=== PATIENT | male | born 1980 | race American Indian/Alaskan Native ===

== ENCOUNTER 2016-09-06 17:14 | Emergency (ER) | payer MEDICARE ==
[2016-09-06 18:38] VITALS: BP 145/100
--- NOTE | 2016-09-06 19:01 | Emergency Department Report ---
Chief Complaint: Abdominal Pain Stated Complaint: ABD PAIN / BILAT HAND PAIN Time Seen by Provider: 09/06/16 18:58 - HPI History of Present Illness: 36 y/o male complain of abdominal pain x 1 month .pt denies any n/v at present .pt denies any prior medication at present . - ROS Review of Systems: per HPI - Exam Vital Signs: Vital Signs 09/06/16 18:33 Temperature 98.6 F Pulse Rate 66 Respiratory 16 Rate Blood Pressure 145/100 O2 Sat by Pulse 98 Oximetry Physical Exam: GENERAL: The patient is well-developed and well-nourished. Patient is in NAD. HENT: Normocephalic. Atraumatic. Patient has moist mucous membranes. Throat: No erythema, swelling or exudates. EYES: Extraocular motions are intact, PERRL NECK: Supple. No meningitic signs are noted. There is no adenopathy noted. CHEST/LUNGS: Clear to auscultation bilaterally. No wheezing, rales or rhonchi noted. There is no respiratory distress noted. HEART/CARDIOVASCULAR: Regular rate and rhythm. Normal S1 S2. No murmurs, rubs , clicks, or gallops. ABDOMEN: Abdomen is soft, nontender.. Bowel sounds normoactive. There is no abdominal distention. Negative rebound tenderness. Negative Rovsing. : Deferred. SKIN: There is no rash. There is no edema. There is no diaphoresis. NEURO: The patient is A&Ox3. The patient has no focal neurologic deficits. MUSCULOSKELETAL: There is no tenderness or deformity. There is no limitation range of motion. PSYCH: Pt has appropriate mood and affect. MSE screening note: Focused history and physical exam performed. Due to findings the following was ordered: ED Disposition for MSE Condition: Stable
[2016-09-06 19:24] LABS: Basophils % (Auto) 0.9 % (0.0-1.8); Hematocrit 41.2 % (35.5-45.6); Hemoglobin 13.2 gm/dl (11.8-15.2); Mean Corpuscular HGB Conc 32 % (32-34); Mean Corpuscular Volume 77 fl (84-94); Platelet Count 257 K/mm3 (140-440); Red Blood Count 5.37 M/mm3 (3.65-5.03); Red Cell Distribution Width 14.9 % (13.2-15.2); White Blood Count 5.5 K/mm3 (4.5-11.0)
[2016-09-06 19:30] LABS: Bilirubin,Urine NEG (Negative); Blood,Urine MOD (Negative); Ketones,Urine NEG (Negative); Leukocyte Esterase,Urine NEG (Negative); Mucus,Urine FEW /HPF; Nitrite,Urine NEG (Negative); Protein,Urine <15 mg/dL mg/dL (Negative); Urobilinogen,Urine < 2.0 mg/dL (<2.0)
[2016-09-06 19:31] LABS: Mean Corpuscular Hemoglobin 25 pg (28-32)
[2016-09-06 19:44] LABS: Amylase 39 units/L (27-131); Blood Urea Nitrogen 8 mg/dL (9-20); Calcium 9.1 mg/dL (8.4-10.2); Carbon Dioxide 28 mmol/L (22-30); Chloride 102.1 mmol/L (98-107); Glucose 85 mg/dL (75-100); Lipase 27 units/L (13-60); Potassium 4.2 mmol/L (3.6-5.0); Sodium 143 mmol/L (137-145)
[2016-09-06 19:55] LABS: Anion Gap 17 mmol/L
--- NOTE | 2016-09-08 04:55 | ED Elopement Review ---
ED Pt Elopement review - Results review Lab results: Laboratory Tests 09/06/16 09/06/16 09/06/16 19:05 19:05 19:12 WBC 5.5 RBC 5.37 H Hgb 13.2 Hct 41.2 MCV 77 L MCH 25 L MCHC 32 RDW 14.9 Plt Count 257 Lymph % (Auto) 41.0 H [place] % (Auto) 6.1 Eos % (Auto) 1.0 Baso % (Auto) 0.9 Lymph # 2.2 [place] # 0.3 Eos # 0.1 Baso # 0.1 Seg Neutrophils % 51.0 Seg Neutrophils # 2.8 Sodium 143 Potassium 4.2 Chloride 102.1 Carbon Dioxide 28 Anion Gap 17 BUN 8 L Creatinine 0.8 Estimated GFR > 60 BUN/Creatinine Ratio 10.00 Glucose 85 Calcium 9.1 Amylase 39 Lipase 27 Urine Color Yellow Urine Turbidity Clear Urine pH 5.0 Ur Specific [place] 1.019 Urine Protein <15 mg/dl Urine Glucose (UA) Neg Urine Ketones Neg Urine Blood Mod Urine Nitrite Neg Urine Bilirubin Neg Urine Urobilinogen < 2.0 Ur Leukocyte Esterase Neg Urine WBC (Auto) 1.0 Urine RBC (Auto) 42.0 U Epithel Cells (Auto) < 1.0 Urine Mucus Few - Call Back decision Pt Call Back Decision: No action required
== END 2016-09-07 04:37 | disposition left against medical advice (07) ==
LOC: ED 17:14
DX: R10.9 Unspecified abdominal pain (principal); Z53.21 Procedure and treatment not carried out due to patient leaving prior to being seen by health care provider
CPT/HCPCS: 36415; 80048; 81001; 82150; 83690; 85025

== ENCOUNTER 2016-10-14 01:05 | Emergency (ER) | payer MEDICARE ==
[2016-10-14 03:48] LABS: Bilirubin,Urine NEG (Negative); Blood,Urine NEG (Negative); Ketones,Urine NEG (Negative); Leukocyte Esterase,Urine NEG (Negative); Mucus,Urine 3+ /HPF; Nitrite,Urine NEG (Negative); Urobilinogen,Urine < 2.0 mg/dL (<2.0)
[2016-10-14 04:39] LABS: Hematocrit 44.1 % (35.5-45.6); Mean Corpuscular HGB Conc 32 % (32-34); Mean Corpuscular Volume 77 fl (84-94); Platelet Count 286 K/mm3 (140-440); Red Blood Count 5.74 M/mm3 (3.65-5.03); Red Cell Distribution Width 15.2 % (13.2-15.2); White Blood Count 6.8 K/mm3 (4.5-11.0)
[2016-10-14 04:47] LABS: Mean Corpuscular Hemoglobin 24 pg (28-32)
[2016-10-14 04:54] LABS: Anion Gap 15 mmol/L; BUN/Creatinine Ratio 15.55; Blood Urea Nitrogen 14 mg/dL (9-20); Carbon Dioxide 25 mmol/L (22-30); Glucose 110 mg/dL (75-100); Potassium 4.3 mmol/L (3.6-5.0); Sodium 134 mmol/L (137-145)
[2016-10-14 05:40] LABS: Basophils % (Manual) 0 % (0.0-1.8); Blastocytes % (Manual) 0 %; Eosinophils % (Manual) 0 % (0.0-4.3)
[2016-10-14 05:41] LABS: Diff Status Complete; Hypochromasia 1+
--- NOTE | 2016-10-14 08:04 | Emergency Department Report ---
HPI - General Chief Complaint: Nausea/Vomiting/Diarrhea Time Seen by Provider: 10/14/16 07:50 - HPI HPI: This is a 36-year-old Afro-Indian male who presents emergency Department with complaint of nausea, vomiting and diarrhea since last evening around 6 PM. Patient says he has had about 25-30 episodes of diarrhea and one episode of vomiting. However he says it feels as if he tries to drink anything or lays a certain way he is going to vomit. He has not taken anything for symptoms prior to presentation. He denies any recent travel or sick contacts at home. His primary care doctor is Dr. Turner. He denies any past medical history. He denies any abdominal pain, back pain, fever, dysuria. ED Past Medical Hx - Past Medical History Previous Medical History?: Yes Hx Hypertension: No Hx CVA: No Hx Heart Attack/AMI: No Hx Congestive Heart Failure: No Hx Diabetes: No Hx Deep Vein Thrombosis: No Hx Pulmonary Embolism: No Hx GERD: No Hx Liver Disease: No Hx Renal Disease: (Renal stones) Hx Sickle Cell Disease: No Hx Arthritis: Yes (HANDS) Hx Headaches / Migraines: No Hx Seizures: No Hx Kidney Stones: Yes Hx Psychiatric Treatment: No Hx Asthma: No Hx COPD: No Hx Tuberculosis: No Hx Dementia: No Hx HIV: No Additional medical history: Inguinal HERNIA-REPAIRED. BILATERAL CARPAL TUNNEL - Surgical History Past Surgical History?: Yes Hx Coronary Stent: No Hx Open Heart Surgery: No Hx Pacemaker: No Hx Internal Defibrillator: No Hx Cholecystectomy: No Hx Appendectomy: No Hx Breast Surgery: No Additional Surgical History: KIDNEY STONE SURGERY 2008. HERNIA REPAIR - Social History Smoking Status: Never Smoker Substance Use Type: None - Medications Home Medications: Home Medications Medication Instructions Recorded Confirmed Last Taken Type Meloxicam [Mobic] 7.5 mg PO QDAY #30 tablet 12/19/15 Unknown Rx Azithromycin [Zithromax TAB] 250 mg PO QDAY #6 tablet 01/05/16 Unknown Rx guaiFENesin/CODEINE [Robitussin AC] 5 - 10 ml PO Q6H PRN #120 ml 01/05/16 Unknown Rx predniSONE [Deltasone] 40 mg PO QDAY #10 tab 01/05/16 Unknown Rx Metaxalone [Skelaxin] 800 mg PO TID PRN #15 tablet 01/20/16 Unknown Rx Amoxicillin [Trimox CAP] 1,000 mg PO QDAY #20 capsule 05/04/16 Unknown Rx Docusate Sodium [Colace] 100 mg PO BID PRN #20 capsule 05/17/16 Unknown Rx Valacyclovir HCl [Valtrex] 1,000 mg PO BID #20 tab 06/24/16 Unknown Rx traMADol [Ultram 50 MG tab] 50 mg PO Q6HR PRN #20 tablet 07/30/16 Unknown Rx Ondansetron [Zofran Odt] 4 mg PO Q8HR PRN #10 tab.rapdis 10/14/16 Unknown Rx ED Review of Systems ROS: Stated complaint: CONSTIPATION/VOMITING Other details as noted in HPI Comment: All other systems reviewed and negative Constitutional: denies: chills, fever Eyes: denies: eye pain, eye discharge, vision change ENT: denies: ear pain, throat pain Respiratory: denies: cough, shortness of breath, wheezing Cardiovascular: denies: chest pain, palpitations Gastrointestinal: nausea, vomiting, diarrhea Musculoskeletal: denies: back pain, joint swelling, arthralgia Skin: denies: rash, lesions Neurological: denies: headache, weakness, paresthesias Physical Exam - Physical Exam Vital Signs: Vital Signs 10/14/16 01:32 Temperature 99.3 F Pulse Rate 110 H Respiratory 18 Rate Blood Pressure 141/74 O2 Sat by Pulse 97 Oximetry Physical Exam: GENERAL: The patient is well-developed well-nourished. HEENT: Normocephalic. Atraumatic. Extraocular motions are intact. Patient has moist mucous membranes. Pupils equal reactive to light bilaterally. NECK: Supple. Trachea is midline. CHEST/LUNGS: Clear to auscultation. There is no respiratory distress noted. HEART/CARDIOVASCULAR: Regular. There is no tachycardia. There is no gallop rub or murmur. ABDOMEN: Abdomen is soft, nontender. Patient has hyperactive bowel sounds. There is no abdominal distention. No guarding rebound tenderness. SKIN: There is no rash. There is no edema. There is no diaphoresis. NEURO: The patient is awake, alert, and oriented. The patient is cooperative. The patient has no focal neurologic deficits. The patient has normal speech. MUSCULOSKELETAL: There is no tenderness or deformity. There is no limitation range of motion. There is no evidence of acute injury. ED Course Vital Signs 10/14/16 01:32 Temperature 99.3 F Pulse Rate 110 H Respiratory 18 Rate Blood Pressure 141/74 O2 Sat by Pulse 97 Oximetry ED Medical Decision Making - Lab Data Result diagrams: 10/14/16 04:17 10/14/16 04:17 - Radiology Data Radiology results: image reviewed interpreted by me: Abdominal x-ray shows nonspecific nonobstructive bowel gas but no signs of bowel instruction. No acute process. - Medical Decision Making 36-year-old male presents to the emergency department with a history of significant diarrhea and some nausea and vomiting since last night. Patient is not having any bowel movements since being in the emergency department. He does have a hyperactive bowel sounds but otherwise his abdomen is soft and nontender. Patient's labs unremarkable including no signs of infection or electrolyte abnormalities. No renal insufficiency or glucose abnormalities. Abdominal x-ray was done that shows some nonspecific bowel gas. Otherwise no signs of obstruction. Patient was given a dose of Zofran here and has since passed a oral challenge. He will be discharged home to follow-up with a primary care doctor and will be given some Zofran. He will return to the ER with any worsening of his symptoms or any acute distress. - Differential Diagnosis gastroenteritis, ileus, viral syndrome, gastritis, colitis Critical Care Time: No Critical care attestation.: If time is entered above; I have spent that time in minutes in the direct care of this critically ill patient, excluding procedure time. ED Disposition Clinical Impression: Nausea & vomiting Qualifiers: Vomiting type: unspecified Vomiting Intractability: non-intractable Qualified Code(s): R11.2 - Nausea with vomiting, unspecified Diarrhea Qualifiers: Diarrhea type: unspecified type Qualified Code(s): R19.7 - Diarrhea, unspecified Disposition: DISCHARGED TO HOME OR SELFCARE Is pt being admited?: No Does the pt Need Aspirin: No Condition: Stable Instructions: Acute Nausea and Vomiting (ED), Acute Diarrhea (ED) Additional Instructions: Increase your oral rehydration. Please follow-up with a primary care doctor in the next few days. Return to the emergency department with any worsening of your symptoms or any acute distress. Prescriptions: Ondansetron [Zofran Odt] 4 mg PO Q8HR PRN #10 tab.rapdis PRN Reason: Nausea Referrals: NILE TURNER MD [Primary Care Provider] - 3-5 Days Time of Disposition: 10:24
[2016-10-14] MEDS: ZOFRAN ODT PO ONE (08:39)
--- NOTE | 2016-10-14 09:06 | XRay Report ---
ABDOMINAL SERIES: History: Vomiting, diarrhea. Findings: Multiple small air-fluid levels are identified throughout the abdomen. No dilated bowel or free air is identified. No pathologic calcifications. Normal stool in the colon. Heart and mediastinal structures are normal. The lung logan are clear. Impression: Findings consistent with gastroenteritis or a mild diffuse ileus. No acute abdominal findings.
[2016-10-14 09:27] VITALS: BP 133/86
== END 2016-10-14 10:39 | disposition home or self-care (01) ==
LOC: ED 01:05
DX: R11.2 Nausea with vomiting, unspecified (principal); R19.7 Diarrhea, unspecified; M19.90 Unspecified osteoarthritis, unspecified site
CPT/HCPCS: 36415; 74020; 80048; 81001; 82962; 85007; 85025; Q0162

== ENCOUNTER 2017-01-18 08:38 | Emergency (ER) | payer MEDICARE ==
[2017-01-18 08:43] VITALS: BP 122/79
[2017-01-18] MEDS ORDERED: MOTRIN PO ONE (09:56)
--- NOTE | 2017-01-18 10:48 | Emergency Department Report ---
Entered by FREDDY PINO, acting as scribe for LOU NORTON PA. HPI - General Chief Complaint: Sore Throat Time Seen by Provider: 01/18/17 09:30 - HPI HPI: 36 y/o male with a PMHx of arthritis and kidney stones presents to the ED c/o a sore throat that began last night. Rates pain a 6/10 in severity and describes pain as sore in quality. Associated symptoms include nasal congestion and rhinorrhea, but he denies headache, fever, chills, drooling, wheezing, and cough. Took OTC sore throat medication and did salt water goggles with no relief. NKDA. ED Past Medical Hx - Past Medical History Previous Medical History?: Yes Hx Hypertension: No Hx CVA: No Hx Heart Attack/AMI: No Hx Congestive Heart Failure: No Hx Diabetes: No Hx Deep Vein Thrombosis: No Hx Pulmonary Embolism: No Hx GERD: No Hx Liver Disease: No Hx Renal Disease: (Renal stones) Hx Sickle Cell Disease: No Hx Arthritis: Yes (HANDS) Hx Headaches / Migraines: No Hx Seizures: No Hx Kidney Stones: Yes Hx Psychiatric Treatment: No Hx Asthma: No Hx COPD: No Hx Tuberculosis: No Hx Dementia: No Hx HIV: No Additional medical history: Inguinal HERNIA-REPAIRED. BILATERAL CARPAL TUNNEL - Surgical History Past Surgical History?: Yes Hx Coronary Stent: No Hx Open Heart Surgery: No Hx Pacemaker: No Hx Internal Defibrillator: No Hx Cholecystectomy: No Hx Appendectomy: No Hx Breast Surgery: No Additional Surgical History: KIDNEY STONE SURGERY 2008. HERNIA REPAIR - Family History Family history: hypertension - Social History Smoking Status: Former Smoker Substance Use Type: Other - Medications Home Medications: Home Medications Medication Instructions Recorded Confirmed Last Taken Type Meloxicam [Mobic] 7.5 mg PO QDAY #30 tablet 12/19/15 Unknown Rx Azithromycin [Zithromax TAB] 250 mg PO QDAY #6 tablet 01/05/16 Unknown Rx guaiFENesin/CODEINE [Robitussin AC] 5 - 10 ml PO Q6H PRN #120 ml 01/05/16 Unknown Rx predniSONE [Deltasone] 40 mg PO QDAY #10 tab 01/05/16 Unknown Rx Metaxalone [Skelaxin] 800 mg PO TID PRN #15 tablet 01/20/16 Unknown Rx Amoxicillin [Trimox CAP] 1,000 mg PO QDAY #20 capsule 05/04/16 Unknown Rx Docusate Sodium [Colace] 100 mg PO BID PRN #20 capsule 05/17/16 Unknown Rx Valacyclovir HCl [Valtrex] 1,000 mg PO BID #20 tab 06/24/16 Unknown Rx traMADol [Ultram 50 MG tab] 50 mg PO Q6HR PRN #20 tablet 07/30/16 Unknown Rx Ondansetron [Zofran Odt] 4 mg PO Q8HR PRN #10 tab.rapdis 10/14/16 Unknown Rx Cetirizine HCl [ZyrTEC] 10 mg PO QDAY #14 capsule 01/18/17 Unknown Rx Fluticasone [Flonase] 1 spray NS QDAY #1 bottle 01/18/17 Unknown Rx ED Review of Systems ROS: Stated complaint: SORE THROAT Other details as noted in HPI Comment: All other systems reviewed and negative Constitutional: no symptoms reported. denies: chills, fever Eyes: denies: eye discharge ENT: throat pain, congestion, other (rhinorrhea, but denies drooling). denies: ear pain, dental pain Respiratory: no symptoms reported. denies: cough, shortness of breath, wheezing Cardiovascular: denies: chest pain, palpitations, edema, syncope Endocrine: no symptoms reported Gastrointestinal: denies: abdominal pain, nausea, vomiting Musculoskeletal: denies: back pain, arthralgia Skin: denies: rash Neurological: denies: headache Physical Exam - Physical Exam Vital Signs: Vital Signs 01/18/17 08:39 Temperature 98.7 F Pulse Rate 80 Respiratory 20 Rate Blood Pressure 122/79 O2 Sat by Pulse 97 Oximetry General: This is a 36-year-old male well-nourished well-developed in no acute distress. Physical Exam: Head: Normocephalic atraumatic Mouth: Moist, no pharyngeal exudate or erythema. Uvula is midline and oral airway is patent. No gingival enlargement or dental tenderness. No facial swelling. No peritonsillar abscesses. Neck: Supple, no C-spine tenderness, no tracheal deviation. Nontender to palpate. no adenopathy Ears: Bilateral TMs congested without erythema .bilateral EAC without any redness swelling or drainage Eyes: Bilateral pupils equal and reactive to light, bilateral EOM intact. Bilateral sclera and conjunctiva without injection. Normal accommodation Nose: Mucosa moist, positive congestion no erythema. Positive clear drainage. maxillary and frontal sinus non-tender to palpate. Lungs: Clear to auscultate bilaterally no rhonchi wheezes or rales. Normal work of breathing extremity; No CCE. +2 pulses. No neurovascular compromise Cardiovascular: S1-S2, regular rate rhythm. No murmurs. Skin: clean Dry and intact no rash no lesions Psych: Normal mood and behavior ED Course Vital Signs 01/18/17 08:39 Temperature 98.7 F Pulse Rate 80 Respiratory 20 Rate Blood Pressure 122/79 O2 Sat by Pulse 97 Oximetry - Reevaluation(s) Reevaluation #1: 01/18/17 10:43 Patient given Motrin 800 mg in emergency room for sore throat. ED Medical Decision Making - Lab Data Strep test is negative and cultures are pending. - Medical Decision Making ED course: With acute pharyngitis, upper respiratory tract infection. Strep test negative. Culture pending. Discussed with patient that he has upper respiratory tract infection which is more than likely viral in nature and he will be treated with Flonase, Zyrtec. Patient given Motrin 800 mg in emergency room for sore throat and discharged home with prescription for Flonase and Zyrtec. Critical care attestation.: If time is entered above; I have spent that time in minutes in the direct care of this critically ill patient, excluding procedure time. ED Disposition Clinical Impression: Upper respiratory infection, acute Acute pharyngitis Qualifiers: Pharyngitis/tonsillitis etiology: unspecified etiology Qualified Code(s): J02.9 - Acute pharyngitis, unspecified Disposition: DISCHARGED TO HOME OR SELFCARE Is pt being admited?: No Does the pt Need Aspirin: No Condition: Stable Instructions: Upper Respiratory Infection (ED), Cold Symptoms (ED), Pharyngitis (ED) Additional Instructions: Please increase her fluid intake Warm salt water 3-4 times a day. Take Medication as prescribed You can also flushing suicidal with saline nasal wash. Prescriptions: Cetirizine HCl [ZyrTEC] 10 mg PO QDAY #14 capsule Fluticasone [Flonase] 1 spray NS QDAY #1 bottle Referrals: PRIMARY CARE, [Primary Care Provider] - 3-5 Days [facility] [Outside] - 3-5 Days Forms: Work/School Release Form(ED) This documentation as recorded by the ODETTE ko JASMINE,accurately reflects the service I personally performed and the decisions made by me,LOU NORTON PA.
== END 2017-01-18 10:51 | disposition home or self-care (01) ==
LOC: ED 08:38
DX: J06.9 Acute upper respiratory infection, unspecified (principal); J02.9 Acute pharyngitis, unspecified; M19.90 Unspecified osteoarthritis, unspecified site; Z87.891 Personal history of nicotine dependence
CPT/HCPCS: 87116; 87430; 99282

== ENCOUNTER 2017-02-01 20:23 | Emergency (ER) | payer MEDICARE ==
[2017-02-01 20:43] VITALS: BP 158/82
--- NOTE | 2017-02-01 22:40 | Emergency Department Report ---
ED General Adult HPI - General Chief complaint: Abdominal Pain Stated complaint: CONSTIPATION Time Seen by Provider: 02/01/17 22:13 Source: patient Mode of arrival: Ambulatory Limitations: No Limitations - History of Present Illness Initial comments: This is a 36-year-old male that presents with constipation for 3 days. Patient stated has a chronic constipation issue and takes Colace with no relief. Patient denies any abdominal pain, nausea vomiting, abdominal distention, fever , chills, headache, shortness of breath, or chest pain. Patient stated he presents today with this issue because Colace has no relief. Patient denies any allergies. MD Complaint: constipation -: Gradual, days(s) (3) Severity scale (0 -10): 1 Improves with: medication (Colace but now has no relief.) Worsens with: none Associated Symptoms: denies other symptoms. denies: confusion, chest pain, cough, diaphoresis, fever/chills, headaches, loss of appetite, malaise, nausea/ vomiting, rash, seizure, shortness of breath, syncope, weakness - Related Data Previous Rx's Medication Instructions Recorded Last Taken Type Meloxicam [Mobic] 7.5 mg PO QDAY #30 tablet 12/19/15 Unknown Rx Azithromycin [Zithromax TAB] 250 mg PO QDAY #6 tablet 01/05/16 Unknown Rx guaiFENesin/CODEINE [Robitussin AC] 5 - 10 ml PO Q6H PRN #120 ml 01/05/16 Unknown Rx predniSONE [Deltasone] 40 mg PO QDAY #10 tab 01/05/16 Unknown Rx Metaxalone [Skelaxin] 800 mg PO TID PRN #15 tablet 01/20/16 Unknown Rx Amoxicillin [Trimox CAP] 1,000 mg PO QDAY #20 capsule 05/04/16 Unknown Rx Docusate Sodium [Colace] 100 mg PO BID PRN #20 capsule 05/17/16 Unknown Rx Valacyclovir HCl [Valtrex] 1,000 mg PO BID #20 tab 06/24/16 Unknown Rx traMADol [Ultram 50 MG tab] 50 mg PO Q6HR PRN #20 tablet 07/30/16 Unknown Rx Ondansetron [Zofran Odt] 4 mg PO Q8HR PRN #10 tab.rapdis 10/14/16 Unknown Rx Cetirizine HCl [ZyrTEC] 10 mg PO QDAY #14 capsule 01/18/17 Unknown Rx Fluticasone [Flonase] 1 spray NS QDAY #1 bottle 01/18/17 Unknown Rx Bisacodyl [Dulcolax suppos] 10 mg [place] QDAY 5 Days 02/01/17 Unknown Rx Allergies Allergy/AdvReac Type Severity Reaction Status Date / Time No Known Allergies Allergy Verified 09/06/16 18:33 ED Review of Systems ROS: Stated complaint: CONSTIPATION Other details as noted in HPI Constitutional: denies: chills, fever Eyes: denies: eye pain, eye discharge, vision change ENT: denies: ear pain, throat pain Respiratory: denies: cough, shortness of breath, wheezing Cardiovascular: denies: chest pain, palpitations Endocrine: no symptoms reported Gastrointestinal: denies: abdominal pain, nausea, diarrhea Genitourinary: denies: urgency, dysuria Musculoskeletal: denies: back pain, joint swelling, arthralgia Skin: denies: rash, lesions Neurological: denies: headache, weakness, paresthesias Psychiatric: denies: anxiety, depression Hematological/Lymphatic: denies: easy bleeding, easy bruising ED Past Medical Hx - Past Medical History Previous Medical History?: Yes Hx Hypertension: No Hx CVA: No Hx Heart Attack/AMI: No Hx Congestive Heart Failure: No Hx Diabetes: No Hx Deep Vein Thrombosis: No Hx Pulmonary Embolism: No Hx GERD: No Hx Liver Disease: No Hx Renal Disease: (Renal stones) Hx of Cancer: No Hx Sickle Cell Disease: No Hx Arthritis: Yes (HANDS) Hx Headaches / Migraines: No Hx Seizures: No Hx Kidney Stones: Yes Hx Psychiatric Treatment: No Hx Asthma: No Hx COPD: No Hx Tuberculosis: No Hx Dementia: No Hx HIV: No Additional medical history: Inguinal HERNIA-REPAIRED. BILATERAL CARPAL TUNNEL - Surgical History Past Surgical History?: Yes Hx Coronary Stent: No Hx Open Heart Surgery: No Hx Pacemaker: No Hx Internal Defibrillator: No Hx Cholecystectomy: No Hx Appendectomy: No Hx Breast Surgery: No Additional Surgical History: KIDNEY STONE SURGERY 2008. HERNIA REPAIR - Social History Smoking Status: Never Smoker Substance Use Type: None - Medications Home Medications: Home Medications Medication Instructions Recorded Confirmed Last Taken Type Meloxicam [Mobic] 7.5 mg PO QDAY #30 tablet 12/19/15 Unknown Rx Azithromycin [Zithromax TAB] 250 mg PO QDAY #6 tablet 01/05/16 Unknown Rx guaiFENesin/CODEINE [Robitussin AC] 5 - 10 ml PO Q6H PRN #120 ml 01/05/16 Unknown Rx predniSONE [Deltasone] 40 mg PO QDAY #10 tab 01/05/16 Unknown Rx Metaxalone [Skelaxin] 800 mg PO TID PRN #15 tablet 01/20/16 Unknown Rx Amoxicillin [Trimox CAP] 1,000 mg PO QDAY #20 capsule 05/04/16 Unknown Rx Docusate Sodium [Colace] 100 mg PO BID PRN #20 capsule 05/17/16 Unknown Rx Valacyclovir HCl [Valtrex] 1,000 mg PO BID #20 tab 06/24/16 Unknown Rx traMADol [Ultram 50 MG tab] 50 mg PO Q6HR PRN #20 tablet 07/30/16 Unknown Rx Ondansetron [Zofran Odt] 4 mg PO Q8HR PRN #10 tab.rapdis 10/14/16 Unknown Rx Cetirizine HCl [ZyrTEC] 10 mg PO QDAY #14 capsule 01/18/17 Unknown Rx Fluticasone [Flonase] 1 spray NS QDAY #1 bottle 01/18/17 Unknown Rx Bisacodyl [Dulcolax suppos] 10 mg [place] QDAY 5 Days 02/01/17 Unknown Rx ED Physical Exam - General Limitations: No Limitations General appearance: alert, in no apparent distress - Head Head exam: Present: atraumatic, normocephalic - Eye Eye exam: Present: normal appearance, PERRL, EOMI Pupils: Present: normal accommodation - ENT ENT exam: Present: normal exam, normal orophraynx, mucous membranes moist, TM's normal bilaterally, normal external ear exam - Neck Neck exam: Present: normal inspection, full ROM. Absent: tenderness, meningismus, lymphadenopathy, thyromegaly - Respiratory Respiratory exam: Present: normal lung sounds bilaterally. Absent: respiratory distress, wheezes, rales, rhonchi, stridor, chest wall tenderness, accessory muscle use, decreased breath sounds, prolonged expiratory - Cardiovascular Cardiovascular Exam: Present: regular rate, normal rhythm, normal heart sounds. Absent: bradycardia, tachycardia, irregular rhythm, systolic murmur, diastolic murmur, rubs, gallop - GI/Abdominal GI/Abdominal exam: Present: soft, normal bowel sounds. Absent: distended, tenderness, guarding, rebound, rigid, diminished bowel sounds, hyperactive bowel sounds, hypoactive bowel sounds, organomegaly, mass, bruit, pulsatile mass , hernia - Expanded GI/Abdominal Exam Expanded GI/Abdominal exam: Absent: psoas sign, obturator sign, heel tap sign, Farnsworth's sign, Rovsing's sign, tenderness at Mcburney's Point, ascites - Rectal Rectal exam: Present: deferred - Extremities Exam Extremities exam: Present: normal inspection, full ROM, normal capillary refill. Absent: tenderness, pedal edema, joint swelling, calf tenderness - Back Exam Back exam: Present: normal inspection, full ROM. Absent: tenderness, CVA tenderness (R), CVA tenderness (L), muscle spasm, paraspinal tenderness, vertebral tenderness, rash noted - Neurological Exam Neurological exam: Present: alert, oriented X3, CN II-XII intact, normal gait - Psychiatric Psychiatric exam: Present: normal affect, normal mood - Skin Skin exam: Present: warm, dry, intact, normal color. Absent: rash ED Course Vital Signs 02/01/17 20:37 Temperature 98.6 F Pulse Rate 83 Respiratory 18 Rate Blood Pressure 158/82 Blood Pressure 158/82 [Right] O2 Sat by Pulse 100 Oximetry ED Medical Decision Making - Medical Decision Making ED course: This is a 36-year-old male that presents with constipation. 1-after physical exam, patient received an x-ray to the abdomen to rule out bowel obstruction. Dictated by Dr. Rivera. Impression; nonobstructive bowel gas pattern. Small amount of stool in the colon. No gross free air. 2- Dr. Childs that has been notified about the patient and x-ray results. Agreed to plan of care and d/c plan of care. 3- Patient was prescribed Dulcolax at the time of d/c. 4- patient was instructed to follow-up with her primary care doctor in 3-5 days or if symptoms worsen such as abdominal pain, nausea vomiting, unable to bowel movement, chest pain or shortness of breath or productive emergency room 5- at time time of discharge, the patient does not seem toxic or ill in appearance. No acute signs of distress noted. Patient agrees to discharge treatment plan of care. No further questions noted by the patient. Critical care attestation.: If time is entered above; I have spent that time in minutes in the direct care of this critically ill patient, excluding procedure time. ED Disposition Clinical Impression: Constipation Qualifiers: Constipation type: unspecified constipation type Qualified Code(s): K59.00 - Constipation, unspecified Disposition: DISCHARGED TO HOME OR SELFCARE Is pt being admited?: No Does the pt Need Aspirin: No Condition: Stable Instructions: Bisacodyl (By mouth), Constipation (ED) Additional Instructions: follow-up with your primary care doctor in 3-5 days or if symptoms worsen such as abdominal pain, nausea vomiting, unable to bowel movement, chest pain or shortness of breath or productive emergency room Take Dulcolax as prescribed. Prescriptions: Bisacodyl [Dulcolax suppos] 10 mg NH QDAY 5 Days Referrals: NILE TURNER MD [Primary Care Provider] - 3-5 Days [facility] [Outside] - 3-5 Days [facility] [Outside] - 3-5 Days BRODIE PERRIN MD [Staff Physician] - 3-5 Days Forms: Work/School Release Form(ED)
--- NOTE | 2017-02-01 22:55 | XRay Report ---
FINAL REPORT EXAM: XR ABDOMEN 2V HISTORY: constipation COMPARISON: None available. FINDINGS: Supine and upright AP views of the abdomen obtained. No gross free air. Gas scattered within non dilated bowl loops. No gross pathologic calcifications. Bony structures are grossly intact. Small amount of stool in the colon. IMPRESSION: Nonobstructive bowel gas pattern. Small amount of stool in the colon.
== END 2017-02-01 23:12 | disposition home or self-care (01) ==
LOC: ED 20:23
DX: K59.00 Constipation, unspecified (principal); M19.90 Unspecified osteoarthritis, unspecified site
CPT/HCPCS: 74020; 99283

== ENCOUNTER 2017-06-21 19:59 | Emergency (ER) | payer MEDICARE ==
[2017-06-21 20:59] LABS: Basophils % (Auto) 0.9 % (0.0-1.8); Eosinophils % (Auto) 1.3 % (0.0-4.3); Mean Corpuscular HGB Conc 33 % (32-34); Mean Corpuscular Volume 77 fl (84-94); Platelet Count 289 K/mm3 (140-440); Red Blood Count 5.16 M/mm3 (3.65-5.03); Red Cell Distribution Width 14.7 % (13.2-15.2)
[2017-06-21 21:00] LABS: Mean Corpuscular Hemoglobin 25 pg (28-32)
[2017-06-21 21:20] LABS: Anion Gap 17 mmol/L; BUN/Creatinine Ratio 13; Blood Urea Nitrogen 8 mg/dL (9-20); Calcium 9.3 mg/dL (8.4-10.2); Carbon Dioxide 25 mmol/L (22-30); Chloride 102.1 mmol/L (98-107); Glucose 116 mg/dL (75-100); Potassium 4.3 mmol/L (3.6-5.0); Sodium 140 mmol/L (137-145)
--- NOTE | 2017-06-22 04:27 | Emergency Department Report ---
ED General Adult HPI - General Chief complaint: Chest Pain Stated complaint: CP Time Seen by Provider: 06/22/17 03:05 Source: patient Mode of arrival: Ambulatory Limitations: No Limitations - History of Present Illness Initial comments: She is a 37-year-old male no significant past medical history who presents with chest pain that has been going on for last 5 days. Patient states that the chest pain occurred while he was working and he believed he pulled a muscle. Chest pain is a 6 out of 10 being in certain positions makes it worse nothing makes it better. Patient denies having any nausea or vomiting. The chest pain is located in the middle of his chest as a sore type of feeling an ache gets worse when he touches it. He denies having any shortness of breath. Severity scale (0 -10): 5 - Related Data Previous Rx's Medication Instructions Recorded Last Taken Type Meloxicam [Mobic] 7.5 mg PO QDAY #30 tablet 12/19/15 Unknown Rx Azithromycin [Zithromax TAB] 250 mg PO QDAY #6 tablet 01/05/16 Unknown Rx guaiFENesin/CODEINE [Robitussin AC] 5 - 10 ml PO Q6H PRN #120 ml 01/05/16 Unknown Rx predniSONE [Deltasone] 40 mg PO QDAY #10 tab 01/05/16 Unknown Rx Metaxalone [Skelaxin] 800 mg PO TID PRN #15 tablet 01/20/16 Unknown Rx Amoxicillin [Trimox CAP] 1,000 mg PO QDAY #20 capsule 05/04/16 Unknown Rx Docusate Sodium [Colace] 100 mg PO BID PRN #20 capsule 05/17/16 Unknown Rx Valacyclovir HCl [Valtrex] 1,000 mg PO BID #20 tab 06/24/16 Unknown Rx traMADol [Ultram 50 MG tab] 50 mg PO Q6HR PRN #20 tablet 07/30/16 Unknown Rx Ondansetron [Zofran Odt] 4 mg PO Q8HR PRN #10 tab.rapdis 10/14/16 Unknown Rx Cetirizine HCl [ZyrTEC] 10 mg PO QDAY #14 capsule 01/18/17 Unknown Rx Fluticasone [Flonase] 1 spray NS QDAY #1 bottle 01/18/17 Unknown Rx Bisacodyl [Dulcolax suppos] 10 mg [place] QDAY 5 Days 02/01/17 Unknown Rx Acetaminophen 1,000 mg PO Q6HR #20 tablet 06/22/17 Unknown Rx Naproxen 250 mg PO BID #20 tablet 06/22/17 Unknown Rx Allergies Allergy/AdvReac Type Severity Reaction Status Date / Time No Known Allergies Allergy Verified 09/06/16 18:33 ED Review of Systems ROS: Stated complaint: CP Other details as noted in HPI Constitutional: denies: chills, fever Eyes: denies: eye pain, eye discharge, vision change ENT: denies: ear pain, throat pain Respiratory: denies: cough, shortness of breath, wheezing Cardiovascular: chest pain. denies: palpitations Endocrine: no symptoms reported Gastrointestinal: denies: abdominal pain, nausea, diarrhea Genitourinary: denies: urgency, dysuria Musculoskeletal: denies: back pain, joint swelling, arthralgia Skin: denies: rash, lesions Neurological: denies: headache, weakness, paresthesias Psychiatric: denies: anxiety, depression Hematological/Lymphatic: denies: easy bleeding, easy bruising ED Past Medical Hx - Past Medical History Hx Hypertension: No Hx CVA: No Hx Heart Attack/AMI: No Hx Congestive Heart Failure: No Hx Diabetes: No Hx Deep Vein Thrombosis: No Hx Pulmonary Embolism: No Hx GERD: No Hx Liver Disease: No Hx Renal Disease: (Renal stones) Hx Sickle Cell Disease: No Hx Arthritis: Yes (HANDS) Hx Headaches / Migraines: No Hx Seizures: No Hx Kidney Stones: Yes Hx Psychiatric Treatment: No Hx Asthma: No Hx COPD: No Hx Tuberculosis: No Hx Dementia: No Hx HIV: No Additional medical history: Inguinal HERNIA-REPAIRED, Obesity,. BILATERAL CARPAL TUNNEL - Surgical History Past Surgical History?: Yes Hx Coronary Stent: No Hx Open Heart Surgery: No Hx Pacemaker: No Hx Internal Defibrillator: No Hx Cholecystectomy: No Hx Appendectomy: No Hx Breast Surgery: No Additional Surgical History: KIDNEY STONE SURGERY 2009. HERNIA REPAIR - Social History Smoking Status: Never Smoker Substance Use Type: None - Medications Home Medications: Home Medications Medication Instructions Recorded Confirmed Last Taken Type Meloxicam [Mobic] 7.5 mg PO QDAY #30 tablet 12/19/15 Unknown Rx Azithromycin [Zithromax TAB] 250 mg PO QDAY #6 tablet 01/05/16 Unknown Rx guaiFENesin/CODEINE [Robitussin AC] 5 - 10 ml PO Q6H PRN #120 ml 01/05/16 Unknown Rx predniSONE [Deltasone] 40 mg PO QDAY #10 tab 01/05/16 Unknown Rx Metaxalone [Skelaxin] 800 mg PO TID PRN #15 tablet 01/20/16 Unknown Rx Amoxicillin [Trimox CAP] 1,000 mg PO QDAY #20 capsule 05/04/16 Unknown Rx Docusate Sodium [Colace] 100 mg PO BID PRN #20 capsule 05/17/16 Unknown Rx Valacyclovir HCl [Valtrex] 1,000 mg PO BID #20 tab 06/24/16 Unknown Rx traMADol [Ultram 50 MG tab] 50 mg PO Q6HR PRN #20 tablet 07/30/16 Unknown Rx Ondansetron [Zofran Odt] 4 mg PO Q8HR PRN #10 tab.rapdis 10/14/16 Unknown Rx Cetirizine HCl [ZyrTEC] 10 mg PO QDAY #14 capsule 01/18/17 Unknown Rx Fluticasone [Flonase] 1 spray NS QDAY #1 bottle 01/18/17 Unknown Rx Bisacodyl [Dulcolax suppos] 10 mg [place] QDAY 5 Days 02/01/17 Unknown Rx Acetaminophen 1,000 mg PO Q6HR #20 tablet 06/22/17 Unknown Rx Naproxen 250 mg PO BID #20 tablet 06/22/17 Unknown Rx ED Physical Exam - General Limitations: No Limitations General appearance: alert, in no apparent distress - Head Head exam: Present: atraumatic, normocephalic - Eye Eye exam: Present: normal appearance - ENT ENT exam: Present: mucous membranes moist - Neck Neck exam: Present: normal inspection - Respiratory Respiratory exam: Present: normal lung sounds bilaterally, chest wall tenderness. Absent: respiratory distress - Cardiovascular Cardiovascular Exam: Present: regular rate, normal rhythm. Absent: systolic murmur, diastolic murmur, rubs, gallop - GI/Abdominal GI/Abdominal exam: Present: soft, normal bowel sounds - Rectal Rectal exam: Present: deferred - Extremities Exam Extremities exam: Present: normal inspection - Back Exam Back exam: Present: normal inspection - Neurological Exam Neurological exam: Present: alert, oriented X3 - Psychiatric Psychiatric exam: Present: normal affect, normal mood - Skin Skin exam: Present: warm, dry, intact, normal color. Absent: rash ED Course Vital Signs 06/21/17 06/22/17 06/22/17 20:13 02:23 03:53 Temperature 98.4 F 98.3 F 98.3 F Pulse Rate 89 74 74 Respiratory 18 18 20 Rate Blood Pressure 143/92 133/88 Blood Pressure 133/88 [Right] O2 Sat by Pulse 97 98 99 Oximetry 06/22/17 03:55 Temperature Pulse Rate Respiratory 20 Rate Blood Pressure Blood Pressure [Right] O2 Sat by Pulse 99 Oximetry ED Medical Decision Making - Lab Data Result diagrams: 06/21/17 20:47 06/21/17 20:47 Lab Results 06/21/17 06/21/17 Range/Units 20:47 20:47 WBC 6.0 (4.5-11.0) K/mm3 RBC 5.16 H (3.65-5.03) M/mm3 Hgb 13.0 (11.8-15.2) gm/dl Hct 40.0 (35.5-45.6) % MCV 77 L (84-94) fl MCH 25 L (28-32) pg MCHC 33 (32-34) % RDW 14.7 (13.2-15.2) % Plt Count 289 (140-440) K/mm3 Lymph % (Auto) 34.1 (13.4-35.0) % Hardy % (Auto) 7.3 (0.0-7.3) % Eos % (Auto) 1.3 (0.0-4.3) % Baso % (Auto) 0.9 (0.0-1.8) % Lymph # 2.0 (1.2-5.4) K/mm3 Hardy # 0.4 (0.0-0.8) K/mm3 Eos # 0.1 (0.0-0.4) K/mm3 Baso # 0.1 (0.0-0.1) K/mm3 Seg Neutrophils % 56.4 (40.0-70.0) % Seg Neutrophils # 3.4 (1.8-7.7) K/mm3 Sodium 140 (137-145) mmol/L Potassium 4.3 (3.6-5.0) mmol/L Chloride 102.1 (98-107) mmol/L Carbon Dioxide 25 (22-30) mmol/L Anion Gap 17 mmol/L BUN 8 L (9-20) mg/dL Creatinine 0.6 L (0.8-1.5) mg/dL Estimated GFR > 60 ml/min BUN/Creatinine Ratio 13 % Glucose 116 H (75-100) mg/dL Calcium 9.3 (8.4-10.2) mg/dL Troponin T < 0.010 (0.00-0.029) ng/mL - EKG Data -: EKG Interpreted by Me - EKG Data 06/22/17 04:28 EKG shows normal sinus rhythm signs of early re-pole no T-wave inversion no Q- wave. - Medical Decision Making Chief medical diagnosis: Costochondritis Differential medical diagnosis: Pulled chest wall muscle, GERD next on A CBC, CMP, EKG, troponin, oral pain medication and IM Toradol Patient's laboratory findings are unremarkable physical exam is concerning for costochondritis or chest wall tenderness patient has clear lung sounds bilaterally and 100% O2 on room air. Patient is requesting to leave he does not need a chest x-ray his pain is better all we'll send patient home with naproxen and 1 g of Tylenol to take. Discussed plan with patient and he agrees with plan. Additional verbal discharge instructions were given. Critical care attestation.: If time is entered above; I have spent that time in minutes in the direct care of this critically ill patient, excluding procedure time. ED Disposition Clinical Impression: Costochondritis Disposition: DC-01 TO HOME OR SELFCARE Is pt being admited?: No Does the pt Need Aspirin: No Condition: Stable Instructions: Costochondritis (ED) Prescriptions: Acetaminophen 1,000 mg PO Q6HR #20 tablet Naproxen 250 mg PO BID #20 tablet Referrals: NILE TURNER MD [Primary Care Provider] - 3-5 Days
[2017-06-22] MEDS ORDERED: TORADOL ONE (04:58)
[2017-06-22] MEDS: TORADOL IM ONE (05:03)
[2017-06-22] MEDS: NORCO 5/325 PO ONE (05:04)
[2017-06-22 05:06] VITALS: BP 139/95
== END 2017-06-22 05:06 | disposition home or self-care (01) ==
LOC: ED 19:59
DX: M94.0 Chondrocostal junction syndrome [Tietze] (principal); M19.90 Unspecified osteoarthritis, unspecified site
CPT/HCPCS: 36415; 80048; 84484; 85025; 93005; 93010; 96372; 99284; J1885

== ENCOUNTER 2017-09-20 14:39 | Emergency (ER) | payer MEDICARE ==
[2017-09-20 18:12] LABS: Bilirubin,Urine NEG (Negative); Blood,Urine NEG (Negative); Color,Urine Yellow (Yellow); Mucus,Urine FEW /HPF; Nitrite,Urine NEG (Negative); Protein,Urine <15 mg/dL mg/dL (Negative)
--- NOTE | 2017-09-21 00:10 | Emergency Department Report ---
ED Male HPI - General Chief complaint: Urogenital-Male Stated complaint: PENIS PAIN Time Seen by Provider: 09/21/17 00:07 Source: patient Mode of arrival: Ambulatory Limitations: No Limitations - History of Present Illness Initial comments: Patient here reports that he is having an pain in his penis since last night. Patient states it stein a little to urinate. Patient says he always wears condoms during sex. He denies any penile discharge. Denies any abdominal or back pain. Pain is 0-10. Denies any blood in his urine. Patient wants to be checked for infection and his kidneys. He denies any rash or lesions around his penis. MD Complaint: dysuria -: Last night Radiation: none Severity scale (0 -10): 0 Quality: burning Consistency: intermittent Worsens with: urination dysuria. denies: discharge, swelling, mass, rash, urinary retention, blood in urine, fever, nausea/vomiting, incontinence - Related Data Sexually active: Yes (he said he always wear a condom) Previous Rx's Medication Instructions Recorded Last Taken Type Meloxicam [Mobic] 7.5 mg PO QDAY #30 tablet 12/19/15 Unknown Rx Azithromycin [Zithromax TAB] 250 mg PO QDAY #6 tablet 01/05/16 Unknown Rx guaiFENesin/CODEINE [Robitussin AC] 5 - 10 ml PO Q6H PRN #120 ml 01/05/16 Unknown Rx predniSONE [Deltasone] 40 mg PO QDAY #10 tab 01/05/16 Unknown Rx Metaxalone [Skelaxin] 800 mg PO TID PRN #15 tablet 01/20/16 Unknown Rx Amoxicillin [Trimox CAP] 1,000 mg PO QDAY #20 capsule 05/04/16 Unknown Rx Docusate Sodium [Colace] 100 mg PO BID PRN #20 capsule 05/17/16 Unknown Rx Valacyclovir HCl [Valtrex] 1,000 mg PO BID #20 tab 06/24/16 Unknown Rx traMADol [Ultram 50 MG tab] 50 mg PO Q6HR PRN #20 tablet 07/30/16 Unknown Rx Ondansetron [Zofran Odt] 4 mg PO Q8HR PRN #10 tab.rapdis 10/14/16 Unknown Rx Cetirizine HCl [ZyrTEC] 10 mg PO QDAY #14 capsule 01/18/17 Unknown Rx Fluticasone [Flonase] 1 spray NS QDAY #1 bottle 01/18/17 Unknown Rx Bisacodyl [Dulcolax suppos] 10 mg NM QDAY 5 Days supp.rect 02/01/17 Unknown Rx Acetaminophen 1,000 mg PO Q6HR #20 tablet 06/22/17 Unknown Rx Naproxen 250 mg PO BID #20 tablet 06/22/17 Unknown Rx Allergies Allergy/AdvReac Type Severity Reaction Status Date / Time No Known Allergies Allergy Verified 09/06/16 18:33 ED Review of Systems ROS: Stated complaint: PENIS PAIN Other details as noted in HPI Comment: All other systems reviewed and negative Constitutional: no symptoms reported ENT: denies: throat pain Respiratory: no symptoms reported Cardiovascular: denies: chest pain, palpitations, dyspnea on exertion, edema, syncope, paroxysmal nocturnal dyspnea Gastrointestinal: denies: abdominal pain, nausea, vomiting, diarrhea, constipation, hematemesis, hematochezia Genitourinary: dysuria. denies: urgency, frequency, hematuria, discharge, testicular pain, testicular mass Musculoskeletal: denies: back pain, joint swelling, arthralgia, myalgia Skin: denies: rash Neurological: denies: headache ED Past Medical Hx - Past Medical History Previous Medical History?: Yes Hx Hypertension: No Hx CVA: No Hx Heart Attack/AMI: No Hx Congestive Heart Failure: No Hx Diabetes: No Hx Deep Vein Thrombosis: No Hx Pulmonary Embolism: No Hx GERD: No Hx Liver Disease: No Hx Renal Disease: (Renal stones) Hx Sickle Cell Disease: No Hx Arthritis: Yes (HANDS) Hx Headaches / Migraines: No Hx Seizures: No Hx Kidney Stones: Yes Hx Psychiatric Treatment: No Hx Asthma: No Hx COPD: No Hx Tuberculosis: No Hx Dementia: No Hx HIV: No Additional medical history: Inguinal HERNIA-REPAIRED, Obesity,. BILATERAL CARPAL TUNNEL - Surgical History Past Surgical History?: Yes Hx Coronary Stent: No Hx Open Heart Surgery: No Hx Pacemaker: No Hx Internal Defibrillator: No Hx Cholecystectomy: No Hx Appendectomy: No Hx Breast Surgery: No Additional Surgical History: KIDNEY STONE SURGERY 2008. HERNIA REPAIR - Family History Family history: hypertension - Social History Smoking Status: Never Smoker Substance Use Type: None - Medications Home Medications: Home Medications Medication Instructions Recorded Confirmed Last Taken Type Meloxicam [Mobic] 7.5 mg PO QDAY #30 tablet 12/19/15 Unknown Rx Azithromycin [Zithromax TAB] 250 mg PO QDAY #6 tablet 01/05/16 Unknown Rx guaiFENesin/CODEINE [Robitussin AC] 5 - 10 ml PO Q6H PRN #120 ml 01/05/16 Unknown Rx predniSONE [Deltasone] 40 mg PO QDAY #10 tab 01/05/16 Unknown Rx Metaxalone [Skelaxin] 800 mg PO TID PRN #15 tablet 01/20/16 Unknown Rx Amoxicillin [Trimox CAP] 1,000 mg PO QDAY #20 capsule 05/04/16 Unknown Rx Docusate Sodium [Colace] 100 mg PO BID PRN #20 capsule 05/17/16 Unknown Rx Valacyclovir HCl [Valtrex] 1,000 mg PO BID #20 tab 06/24/16 Unknown Rx traMADol [Ultram 50 MG tab] 50 mg PO Q6HR PRN #20 tablet 07/30/16 Unknown Rx Ondansetron [Zofran Odt] 4 mg PO Q8HR PRN #10 tab.rapdis 10/14/16 Unknown Rx Cetirizine HCl [ZyrTEC] 10 mg PO QDAY #14 capsule 01/18/17 Unknown Rx Fluticasone [Flonase] 1 spray NS QDAY #1 bottle 01/18/17 Unknown Rx Bisacodyl [Dulcolax suppos] 10 mg NM QDAY 5 Days supp.rect 02/01/17 Unknown Rx Acetaminophen 1,000 mg PO Q6HR #20 tablet 06/22/17 Unknown Rx Naproxen 250 mg PO BID #20 tablet 06/22/17 Unknown Rx ED Physical Exam - General Limitations: No Limitations General appearance: alert, in no apparent distress - Head Head exam: Present: atraumatic, normocephalic, normal inspection - Eye Eye exam: Present: normal appearance, PERRL, EOMI Pupils: Present: normal accommodation - ENT ENT exam: Present: normal exam, normal orophraynx, mucous membranes moist - Neck Neck exam: Present: normal inspection, full ROM. Absent: tenderness, meningismus, lymphadenopathy, thyromegaly - Respiratory Respiratory exam: Present: normal lung sounds bilaterally. Absent: respiratory distress, chest wall tenderness - Cardiovascular Cardiovascular Exam: Present: regular rate, normal rhythm, normal heart sounds. Absent: systolic murmur, diastolic murmur - GI/Abdominal GI/Abdominal exam: Present: soft, normal bowel sounds. Absent: distended, tenderness, guarding, rebound, rigid, organomegaly, mass, bruit, pulsatile mass , hernia - exam: Present: normal inspection External exam: Present: normal external exam - Extremities Exam Extremities exam: Present: normal inspection, full ROM, normal capillary refill , other (no clubbing, cyanosis or edema. +2 pulses to all extremities.). Absent: tenderness, pedal edema, joint swelling, calf tenderness - Back Exam Back exam: Present: normal inspection, full ROM, other (ambulates without any difficulties). Absent: tenderness, CVA tenderness (R), CVA tenderness (L), muscle spasm, paraspinal tenderness, vertebral tenderness, rash noted - Neurological Exam Neurological exam: Present: alert, oriented X3, normal gait - Psychiatric Psychiatric exam: Present: normal affect, normal mood - Skin Skin exam: Present: warm, dry, intact, normal color. Absent: rash ED Course Vital Signs 09/20/17 16:23 Temperature 98.4 F Pulse Rate 80 Respiratory 16 Rate Blood Pressure 128/80 O2 Sat by Pulse 98 Oximetry - Reevaluation(s) Reevaluation #1: 09/21/17 00:58 Patient is stable throughout ED course ED Medical Decision Making - Lab Data Lab Results 09/20/17 Range/Units Unknown Urine Color Yellow (Yellow) Urine Turbidity Clear (Clear) Urine pH 5.0 (5.0-7.0) Ur Specific [place] 1.033 H (1.003-1.030) Urine Protein <15 mg/dl (Negative) mg/dL Urine Glucose (UA) Neg (Negative) mg/dL Urine Ketones Neg (Negative) mg/dL Urine Blood Neg (Negative) Urine Nitrite Neg (Negative) Urine Bilirubin Neg (Negative) Urine Urobilinogen 2.0 (<2.0) mg/dL Ur Leukocyte Esterase Neg (Negative) Urine WBC (Auto) 2.0 (0.0-6.0) /HPF Urine RBC (Auto) 15.0 (0.0-6.0) /HPF U Epithel Cells (Auto) < 1.0 (0-13.0) /HPF Urine Mucus Few /HPF Urine culture pending - Medical Decision Making ED course: Pt said that he had some urinary burning that started last night and he wants to see if he hasn't infection in his kidneys. He has a history of kidney stone and he is not having any flank pain or abdominal pain. Patient and urinalysis reveals no infection. I told him that his urine is slightly concentrated and that's from not drinking enough water. He denies any penile discharge and said he always wears a condom when he's having sex. Patient is not concerned for any STD and did not want to be checked for STD. Patient does have a primary care physician. I told them that I'll send a urine culture off and he will be called if he needs to be placed on medication. I encouraged him to increase his fluid intake and follow-up with his primary care physician. She was on this for the discharge instruction and treatment plan and discharged home in stable condition. Critical care attestation.: If time is entered above; I have spent that time in minutes in the direct care of this critically ill patient, excluding procedure time. ED Disposition Clinical Impression: Dysuria Disposition: DC-01 TO HOME OR SELFCARE Is pt being admited?: No Does the pt Need Aspirin: No Condition: Stable Instructions: Dysuria (ED) Additional Instructions: Increasing her fluid intake to include to 3 L of water per day Follow up with your primary care physician. If you want to have STD testing done, you can go to your primary care physician or health department in the future Referrals: NILE TURNER MD [Primary Care Provider] - 2-3 Days Forms: Work/School Release Form(ED)
[2017-09-21 01:20] VITALS: BP 127/88
== END 2017-09-21 01:19 | disposition home or self-care (01) ==
LOC: ED 14:39
DX: R30.0 Dysuria (principal); M19.90 Unspecified osteoarthritis, unspecified site
CPT/HCPCS: 81001; 87086; 99283

== ENCOUNTER 2019-04-04 10:44 | Emergency (ER) | payer MEDICARE ==
--- NOTE | 2019-04-04 11:48 | Emergency Department Report ---
ED Abdominal Pain HPI - General Chief Complaint: Abdominal Pain Stated Complaint: LOWER STOMACH PAIN Time Seen by Provider: 04/04/19 11:35 Source: patient Mode of arrival: Ambulatory Limitations: No Limitations - History of Present Illness Initial Comments: 38 year old -Romanian male presents to the emergency room complaining of lower right abdominal pain since today. Pain were is worse with movement. Better with nothing. Patient reports that the pain came on abruptly. Reports pain for 7-10. Denies any past medical history currently takes no medications on a daily basis has no known drug allergies. Patient reports this had her hernia repair and history of kidney stone surgery in 2008. She denies any fever chills or dysuria or urinary frequency or urinary urgency. MD Complaint: abdominal pain -: This morning Time: 07:00 Radiation: RLQ Severity scale (0 -10): 7 Quality: aching Consistency: intermittent Improves With: nothing Worsens With: movement Associated Symptoms: denies other symptoms - Related Data Home Medications Medication Instructions Recorded Confirmed Last Taken Aspirin [Aspirin EC] 81 mg PO DAILY 10/06/17 10/06/17 Unknown Cyclobenzaprine [Flexeril 10 MG 10 mg PO TID PRN 10/06/17 10/06/17 Unknown TAB] Diphenoxylate HCl/Atropine 1 each PO PRN 10/06/17 10/06/17 Unknown [Diphenoxylate-Atrop 2.5-0.025] Ziprasidone HCl [Geodon] 80 mg PO BID 10/06/17 10/06/17 Unknown hydroCHLOROthiazide [HCTZ] 12.5 mg PO QDAY 10/06/17 10/06/17 Unknown Previous Rx's Medication Instructions Recorded Last Taken Type Omeprazole 40 mg PO DAILY #30 capsule. 10/08/17 Unknown Rx Ibuprofen [Motrin 800 MG tab] 800 mg PO Q8HR PRN #21 tablet 04/04/19 Unknown Rx Oxycodone HCl/Acetaminophen 1 each PO Q6HR PRN #12 tablet 04/04/19 Unknown Rx [Percocet 7.5/325 mg] Tamsulosin [Flomax] 0.4 mg PO QDAY #5 cap 04/04/19 Unknown Rx Allergies Allergy/AdvReac Type Severity Reaction Status Date / Time No Known Allergies Allergy Verified 04/04/19 10:45 ED Review of Systems ROS: Stated complaint: LOWER STOMACH PAIN Other details as noted in HPI Comment: All other systems reviewed and negative ED Past Medical Hx - Past Medical History Hx Hypertension: Yes (has been taking BP meds since 06/2017) Hx CVA: No Hx Heart Attack/AMI: No Hx Congestive Heart Failure: No Hx Diabetes: No Hx Deep Vein Thrombosis: No Hx Pulmonary Embolism: No Hx GERD: No Hx Liver Disease: No Hx Renal Disease: No Hx Sickle Cell Disease: No Hx Arthritis: Yes (HANDS) Hx Headaches / Migraines: No Hx Seizures: No Hx Kidney Stones: Yes Hx Psychiatric Treatment: No Hx Asthma: No Hx COPD: No Hx Tuberculosis: No Hx Dementia: No Hx HIV: No Additional medical history: Inguinal HERNIA-REPAIRED, Obesity,. BILATERAL CARP AL TUNNEL - Surgical History Hx Coronary Stent: No Hx Open Heart Surgery: No Hx Pacemaker: No Hx Internal Defibrillator: No Hx Cholecystectomy: No Hx Appendectomy: No Hx Breast Surgery: No Additional Surgical History: KIDNEY STONE SURGERY 2008. HERNIA REPAIR - Social History Smoking Status: Never Smoker - Medications Home Medications: Home Medications Medication Instructions Recorded Confirmed Last Taken Type Aspirin [Aspirin EC] 81 mg PO DAILY 10/06/17 10/06/17 Unknown History Cyclobenzaprine [Flexeril 10 MG 10 mg PO TID PRN 10/06/17 10/06/17 Unknown History TAB] Diphenoxylate HCl/Atropine 1 each PO PRN 10/06/17 10/06/17 Unknown History [Diphenoxylate-Atrop 2.5-0.025] Ziprasidone HCl [Geodon] 80 mg PO BID 10/06/17 10/06/17 Unknown History hydroCHLOROthiazide [HCTZ] 12.5 mg PO QDAY 10/06/17 10/06/17 Unknown History Omeprazole 40 mg PO DAILY #30 capsule. 10/08/17 Unknown Rx Ibuprofen [Motrin 800 MG tab] 800 mg PO Q8HR PRN #21 tablet 04/04/19 Unknown Rx Oxycodone HCl/Acetaminophen 1 each PO Q6HR PRN #12 tablet 04/04/19 Unknown Rx [Percocet 7.5/325 mg] Tamsulosin [Flomax] 0.4 mg PO QDAY #5 cap 04/04/19 Unknown Rx ED Physical Exam - General Limitations: No Limitations General appearance: alert, in no apparent distress - Head Head exam: Present: atraumatic, normocephalic - Eye Eye exam: Present: normal appearance - ENT ENT exam: Present: mucous membranes moist - Neck Neck exam: Present: normal inspection - Respiratory Respiratory exam: Present: normal lung sounds bilaterally. Absent: respiratory distress - Cardiovascular Cardiovascular Exam: Present: regular rate, normal rhythm. Absent: systolic murmur, diastolic murmur, rubs, gallop - GI/Abdominal GI/Abdominal exam: Present: soft, normal bowel sounds - Rectal Rectal exam: Present: deferred - Extremities Exam Extremities exam: Present: normal inspection - Back Exam Back exam: Present: normal inspection - Neurological Exam Neurological exam: Present: alert, oriented X3 - Psychiatric Psychiatric exam: Present: normal affect, normal mood - Skin Skin exam: Present: warm, dry, intact, normal color. Absent: rash ED Course Vital Signs 04/04/19 11:02 Temperature 98.5 F Pulse Rate 69 Respiratory 20 Rate Blood Pressure 149/79 O2 Sat by Pulse 96 Oximetry ED Medical Decision Making - Lab Data Result diagrams: 04/04/19 11:30 04/04/19 11:30 Laboratory Tests 04/04/19 04/04/19 04/04/19 11:30 11:30 11:37 WBC 4.8 RBC 5.16 H Hgb 13.0 Hct 40.5 MCV 79 L MCH 25 L MCHC 32 RDW 15.0 Plt Count 269 Lymph % (Auto) 27.3 Keith % (Auto) 8.0 H Eos % (Auto) 1.0 Baso % (Auto) 0.8 Lymph # 1.3 Keith # 0.4 Eos # 0.0 Baso # 0.0 Seg Neutrophils % 62.9 Seg Neutrophils # 3.0 Sodium 139 Potassium 3.8 Chloride 103.3 Carbon Dioxide 24 Anion Gap 16 BUN 13 Creatinine 0.9 Estimated GFR > 60 BUN/Creatinine Ratio 14 Glucose 104 H Calcium 9.2 Total Bilirubin 1.20 AST 15 ALT 18 Alkaline Phosphatase 62 Total Protein 7.2 Albumin 4.3 Albumin/Globulin Ratio 1.5 Lipase 57 Urine Color Urine Turbidity Urine pH Ur Specific [place] Urine Protein Urine Glucose (UA) Urine Ketones Urine Blood Urine Nitrite Urine Bilirubin Urine Urobilinogen Ur Leukocyte Esterase Urine WBC (Auto) Urine RBC (Auto) U Epithel Cells (Auto) Urine Mucus Urine Sperm 04/04/19 Unknown WBC RBC Hgb Hct MCV MCH MCHC RDW Plt Count Lymph % (Auto) Keith % (Auto) Eos % (Auto) Baso % (Auto) Lymph # Keith # Eos # Baso # Seg Neutrophils % Seg Neutrophils # Sodium Potassium Chloride Carbon Dioxide Anion Gap BUN Creatinine Estimated GFR BUN/Creatinine Ratio Glucose Calcium Total Bilirubin AST ALT Alkaline Phosphatase Total Protein Albumin Albumin/Globulin Ratio Lipase Urine Color Yellow Urine Turbidity Slightly-cloudy Urine pH 5.0 Ur Specific [place] 1.028 Urine Protein 100 mg/dl Urine Glucose (UA) Neg Urine Ketones Neg Urine Blood Lg Urine Nitrite Neg Urine Bilirubin Neg Urine Urobilinogen < 2.0 Ur Leukocyte Esterase Neg Urine WBC (Auto) 5.0 Urine RBC (Auto) > 182.0 U Epithel Cells (Auto) 1.0 Urine Mucus 2+ Urine Sperm 1+ - Radiology Data Radiology results: report reviewed Patient: LUCY CORONEL MR#: [id number] : 1980 Acct:[id number] Age/Sex: 38 / M ADM Date: 04/04/19 Loc: ED Attending Dr: Ordering Physician: MANOLO LIZ Date of Service: 04/04/19 Procedure(s): CT abdomen pelvis w con Accession Number(s): [id number] cc: MANOLO LIZ CT ABDOMEN AND PELVIS WITH CONTRAST HISTORY: Right lower quadrant pain for one day COMPARISON: 04/02/2015 TECHNIQUE: Axial CT images were obtained through the abdomen and pelvis after 100 cc of Omnipaque 300 intravenously. Sagittal and coronal reformatted images. All CT scans at this location are performed using CT dose reduction for ALARA by means of automated exposure control. FINDINGS: CT ABDOMEN: Lung Bases: Clear. Liver: No significant abnormality. Biliary: No significant abnormality. Spleen: No significant abnormality. Unenlarged. Pancreas: No significant abnormality. Adrenals: No significant abnormality. Kidneys: A 3.5 mm calculus is identified in the mid right ureter on image 63. There is minimal upstream right hydronephrosis. A 2 mm calyceal stone is also identified in the superior right kidney. A 2 mm calyceal stone is suspected in the mid left kidney on image 40. The left ureter is normal course and caliber. No renal mass or cystic disease. Lymphatics: No lymphadenopathy. Vasculature: No significant abnormality. Bowel/Peritoneum: There are scattered diverticula throughout the length of the colon. No acute inflammatory changes or bowel obstruction. No free air or free fluid. Normal appendix. CT PELVIS: : No significant abnormality. Osseous Structures: No significant abnormality. Additional Findings: None IMPRESSION: 3.5 mm right ureteral stone, minimal hydronephrosis. Solitary bilateral renal stones, nonobstructing. Mild diverticulosis of the colon. Signer Name: Elvin Davies Jr, MD Signed: 04/04/2019 3:54 PM Workstation Name: [id number] Transcribed By: TTR Dictated By: ELVIN DAVIES JR, MD Electronically Authenticated By: ELVIN DAVIES JR, MD Signed Date/Time: 04/04/191553 DD/ 49 TD/TT: - Medical Decision Making 38 year old -Romanian male presents to the emergency room complaining of lower right abdominal pain since today. Pain were is worse with movement. Better with nothing. Patient reports that the pain came on abruptly. Reports pain for 7-10. Denies any past medical history currently takes no medications on a daily basis has no known drug allergies. Patient reports this had her hernia repair and history of kidney stone surgery in 2008. She denies any fever chills or dysuria or urinary frequency or urinary urgency. CT of abdomen and pelvis ordered a 1138. Call CT at 131 day reports her, to toi et him now. Critical care attestation.: If time is entered above; I have spent that time in minutes in the direct care of this critically ill patient, excluding procedure time. ED Disposition Clinical Impression: Kidney calculi Disposition: TO HOME OR SELFCARE Is pt being admited?: No Does the pt Need Aspirin: No Condition: Stable Instructions: Kidney Stones (ED) Additional Instructions: Medication as prescribed. Please follow up with urologist I have listed one below for your convenience. Prescriptions: Tamsulosin [Flomax] 0.4 mg PO QDAY #5 cap Ibuprofen [Motrin 800 MG tab] 800 mg PO Q8HR PRN #21 tablet PRN Reason: Pain , Severe (7-10) Oxycodone HCl/Acetaminophen [Percocet 7.5/325 mg] 1 each PO Q6HR PRN #12 tablet PRN Reason: Pain Referrals: TABITHA THOMSON MD [Primary Care Provider] - 3-5 Days [place]OR[place] HERNANDEZ MD [Staff Physician] - 3-5 Days Forms: Work/School Release Form(ED)
[2019-04-04 12:08] LABS: Basophils % (Auto) 0.8 % (0.0-1.8); Hematocrit 40.5 % (35.5-45.6); Lymphocytes # (Auto) 1.3 K/mm3 (1.2-5.4); Lymphocytes % (Auto) 27.3 % (13.4-35.0); Mean Corpuscular HGB Conc 32 % (32-34); Mean Corpuscular Volume 79 fl (84-94); Monocytes # (Auto) 0.4 K/mm3 (0.0-0.8); Platelet Count 269 K/mm3 (140-440); Red Blood Count 5.16 M/mm3 (3.65-5.03)
[2019-04-04 12:26] LABS: Bilirubin,Urine NEG (Negative); Blood,Urine LG (Negative); Color,Urine Yellow (Yellow); Mucus,Urine 2+ /HPF; Sperm,Urine 1+ /HPF (NP); Urobilinogen,Urine < 2.0 mg/dL (<2.0)
[2019-04-04 12:34] LABS: Alanine Aminotransferase 18 units/L (7-56); Albumin 4.3 g/dL (3.9-5); BUN/Creatinine Ratio 14; Blood Urea Nitrogen 13 mg/dL (9-20); Calcium 9.2 mg/dL (8.4-10.2); Hemolysis Index 4
[2019-04-04 12:34] LABS: RBC,Urine > 182.0 /HPF (0.0-6.0)
--- NOTE | 2019-04-04 15:59 | Cat Scan Report ---
CT ABDOMEN AND PELVIS WITH CONTRAST HISTORY: Right lower quadrant pain for one day COMPARISON: 04/02/2015 TECHNIQUE: Axial CT images were obtained through the abdomen and pelvis after 100 cc of Omnipaque 300 intravenously. Sagittal and coronal reformatted images. All CT scans at this location are performed using CT dose reduction for ALARA by means of automated exposure control. FINDINGS: CT ABDOMEN: Lung Bases: Clear. Liver: No significant abnormality. Biliary: No significant abnormality. Spleen: No significant abnormality. Unenlarged. Pancreas: No significant abnormality. Adrenals: No significant abnormality. Kidneys: A 3.5 mm calculus is identified in the mid right ureter on image 63. There is minimal upstre am right hydronephrosis. A 2 mm calyceal stone is also identified in the superior right kidney. A 2 m m calyceal stone is suspected in the mid left kidney on image 40. The left ureter is normal course an d caliber. No renal mass or cystic disease. Lymphatics: No lymphadenopathy. Vasculature: No significant abnormality. Bowel/Peritoneum: There are scattered diverticula throughout the length of the colon. No acute inflam matory changes or bowel obstruction. No free air or free fluid. Normal appendix. CT PELVIS: : No significant abnormality. Osseous Structures: No significant abnormality. Additional Findings: None IMPRESSION: 3.5 mm right ureteral stone, minimal hydronephrosis. Solitary bilateral renal stones, nonobstructing. Mild diverticulosis of the colon. Signer Name: Elvin Davies Jr, MD Signed: 04/04/2019 3:54 PM Workstation Name: [id number]
[2019-04-04] MEDS ORDERED: NACL 0.9% 1000 ML 1,000 ML IV ONE (17:26)
[2019-04-04 17:59] VITALS: BP 142/72
== END 2019-04-04 17:59 | disposition home or self-care (01) ==
LOC: ED 10:44
DX: N20.0 Calculus of kidney (principal); I10 Essential (primary) hypertension; M19.90 Unspecified osteoarthritis, unspecified site; Z79.82 Long term (current) use of aspirin; Z79.899 Other long term (current) drug therapy
CPT/HCPCS: 36415; 74177; 80053; 81001; 83690; 85025; 99284; Q9967; J7030

== ENCOUNTER 2019-10-30 11:39 | Emergency (ER) | payer MEDICARE ==
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
[2019-10-30 14:04] VITALS: BP 135/91
== END 2019-10-30 14:03 | disposition left against medical advice (07) ==
LOC: ED 11:39
DX: S16.1XXA Strain of muscle, fascia and tendon at neck level, initial encounter (principal); V49.49XA Driver injured in collision with other motor vehicles in traffic accident, initial encounter; Y93.89 Activity, other specified; Y92.410 Unspecified street and highway as the place of occurrence of the external cause; Y99.8 Other external cause status
CPT/HCPCS: 99281

== ENCOUNTER 2019-12-06 14:47 | Emergency (ER) | payer MEDICARE ==
--- NOTE | 2019-12-06 14:54 | Event Note ---
ED Screening Note ED Screening Note: L FLANK PAIN SCAN IN 03/25 B STONES RX NONE PMH NONE OBESE NO CIG/ETOH/DRUGS PSH HERNIA 2 Y AGO This initial assessment/diagnostic orders/clinical plan/treatment(s) is/are subject to change based on patients health status, clinical progression and re- assessment by fellow clinical providers in the ED. Further treatment and workup at subsequent clinical providers discretion. Patient/guardian urged not to elope from the ED as their condition may be serious if not clinically assessed and managed. Initial orders include: RO STONE; U/A; LABS; CT
[2019-12-06] MEDS ORDERED: SODIUM CHLORIDE 0.9% 1000 ML 1,000 ML IV ONE (14:56)
[2019-12-06 15:53] LABS: Bilirubin,Urine NEG (Negative); Blood,Urine NEG (Negative); Color,Urine Yellow (Yellow); Mucus,Urine FEW /HPF; Protein,Urine <15 mg/dL mg/dL (Negative); WBC,Urine < 1.0 /HPF (0.0-6.0)
[2019-12-06 16:13] LABS: Basophils % (Auto) 0.5 % (0.0-1.8); Eosinophils # (Auto) 0.1 K/mm3 (0.0-0.4); Eosinophils % (Auto) 1.1 % (0.0-4.3); Hematocrit 42.6 % (35.5-45.6); Hemoglobin 13.7 gm/dl (11.8-15.2); Lymphocytes # (Auto) 1.5 K/mm3 (1.2-5.4); Lymphocytes % (Auto) 30.6 % (13.4-35.0); Mean Corpuscular HGB Conc 32 % (32-34); Mean Corpuscular Volume 77 fl (84-94); Monocytes # (Auto) 0.3 K/mm3 (0.0-0.8); Monocytes % (Auto) 6.2 % (0.0-7.3); Platelet Count 286 K/mm3 (140-440); Red Blood Count 5.55 M/mm3 (3.65-5.03)
[2019-12-06 16:43] LABS: Alanine Aminotransferase 21 units/L (7-56); Albumin 4.5 g/dL (3.9-5); BUN/Creatinine Ratio 11; Blood Urea Nitrogen 9 mg/dL (9-20); Calcium 9.4 mg/dL (8.4-10.2); Hemolysis Index 11
--- NOTE | 2019-12-06 17:10 | Cat Scan Report ---
CT ABDOMEN AND PELVIS WITHOUT CONTRAST INDICATION: L FLANK PAIN. TECHNIQUE: Axial CT images were obtained through the abdomen and pelvis without IV contrast. All CT scans at [facility] location are performed using CT dose reduction for ALARA by means of automated exposure control. COMPARISON: CT abdomen pelvis 04/04/2019 FINDINGS: LOWER CHEST: No significant abnormality. LIVER: No significant abnormality. GALLBLADDER: No significant abnormality. BILE DUCTS: No significant abnormality. PANCREAS: No significant abnormality. SPLEEN: No significant abnormality. ADRENALS: No significant abnormality. RIGHT KIDNEY and URETER: Single nonobstructing 2 mm right intrarenal stone. No ureteral stone or hydr onephrosis. LEFT KIDNEY and URETER: 2 tiny punctate nonobstructing 1 mm left intrarenal stones. No ureteral stone or hydronephrosis STOMACH and SMALL BOWEL: No significant abnormality. COLON: Mild colonic diverticulosis without CT evidence for diverticulitis. APPENDIX: No significant abnormality. PERITONEUM: No free fluid. No free air. No fluid collection. LYMPH NODES: No significant adenopathy. AORTA and ARTERIES: No significant abnormality. IVC and VEINS: No significant abnormality. URINARY BLADDER: No significant abnormality. REPRODUCTIVE ORGANS: No significant abnormality. ADDITIONAL FINDINGS: None. SKELETAL SYSTEM: No significant abnormality. IMPRESSION: 1. Bilateral nephrolithiasis. 2. Mild colonic diverticulosis Signer Name: Uriel Thomson MD Signed: 12/06/2019 5:06 PM Workstation Name: [id number]
--- NOTE | 2019-12-06 18:22 | Emergency Department Report ---
ED Abdominal Pain HPI - General Chief Complaint: Extremity Injury, Lower Stated Complaint: LEFT SIDE PAIN Time Seen by Provider: 12/06/19 14:54 Source: patient Mode of arrival: Ambulatory Limitations: No Limitations - History of Present Illness Initial Comments: This is a 39-year-old male who presents to the ED complaining of bilateral flank pain for the past 2 to 3 days. Patient states that he has had a history of kidney stones in the past. Patient states he has not had follow-up follow-up.. Patient states that pain on the left flank area is more than the right. Patient denies abdominal pain, nausea, vomiting, dysuria, diarrhea, shortness of breath, Complaint: flank pain - Related Data Home Medications Medication Instructions Recorded Confirmed Last Taken Aspirin [Aspirin EC] 81 mg PO DAILY 10/06/17 10/06/17 Unknown Cyclobenzaprine [Flexeril 10 MG 10 mg PO TID PRN 10/06/17 10/06/17 Unknown TAB] Diphenoxylate HCl/Atropine 1 each PO PRN 10/06/17 10/06/17 Unknown [Diphenoxylate-Atrop 2.5-0.025] Ziprasidone HCl [Geodon] 80 mg PO BID 10/06/17 10/06/17 Unknown hydroCHLOROthiazide [HCTZ] 12.5 mg PO QDAY 10/06/17 10/06/17 Unknown Previous Rx's Medication Instructions Recorded Last Taken Type Omeprazole 40 mg PO DAILY #30 capsule. 10/08/17 Unknown Rx Ibuprofen [Motrin 800 MG tab] 800 mg PO Q8HR PRN #21 tablet 04/04/19 Unknown Rx Oxycodone HCl/Acetaminophen 1 each PO Q6HR PRN #12 tablet 04/04/19 Unknown Rx [Percocet 7.5/325 mg] Ketorolac [Toradol] 10 mg PO Q6H PRN #20 tablet 12/06/19 Unknown Rx Metoclopramide [Reglan] 10 mg PO TID #20 tab 12/06/19 Unknown Rx Tamsulosin [Flomax] 0.4 mg PO QDAY #5 cap 12/06/19 Unknown Rx Allergies Allergy/AdvReac Type Severity Reaction Status Date / Time No Known Allergies Allergy Verified 04/04/19 10:45 ED Review of Systems ROS: Stated complaint: LEFT SIDE PAIN Other details as noted in HPI Comment: All other systems reviewed and negative ED Past Medical Hx - Past Medical History Hx Hypertension: Yes (has been taking BP meds since 06/2017) Hx CVA: No Hx Heart Attack/AMI: No Hx Congestive Heart Failure: No Hx Diabetes: No Hx Deep Vein Thrombosis: No Hx Pulmonary Embolism: No Hx GERD: No Hx Liver Disease: No Hx Renal Disease: No Hx Sickle Cell Disease: No Hx Arthritis: Yes (HANDS) Hx Headaches / Migraines: No Hx Seizures: No Hx Kidney Stones: Yes Hx Psychiatric Treatment: No Hx Asthma: No Hx COPD: No Hx Tuberculosis: No Hx Dementia: No Hx HIV: No Additional medical history: Inguinal HERNIA-REPAIRED, Obesity,. BILATERAL CARPAL TUNNEL - Surgical History Hx Coronary Stent: No Hx Open Heart Surgery: No Hx Pacemaker: No Hx Internal Defibrillator: No Hx Cholecystectomy: No Hx Appendectomy: No Hx Breast Surgery: No Additional Surgical History: KIDNEY STONE SURGERY 2008. HERNIA REPAIR - Social History Smoking Status: Never Smoker Substance Use Type: None - Medications Home Medications: Home Medications Medication Instructions Recorded Confirmed Last Taken Type Aspirin [Aspirin EC] 81 mg PO DAILY 10/06/17 10/06/17 Unknown History Cyclobenzaprine [Flexeril 10 MG 10 mg PO TID PRN 10/06/17 10/06/17 Unknown History TAB] Diphenoxylate HCl/Atropine 1 each PO PRN 10/06/17 10/06/17 Unknown History [Diphenoxylate-Atrop 2.5-0.025] Ziprasidone HCl [Geodon] 80 mg PO BID 10/06/17 10/06/17 Unknown History hydroCHLOROthiazide [HCTZ] 12.5 mg PO QDAY 10/06/17 10/06/17 Unknown History Omeprazole 40 mg PO DAILY #30 capsule. 10/08/17 Unknown Rx Ibuprofen [Motrin 800 MG tab] 800 mg PO Q8HR PRN #21 tablet 04/04/19 Unknown Rx Oxycodone HCl/Acetaminophen 1 each PO Q6HR PRN #12 tablet 04/04/19 Unknown Rx [Percocet 7.5/325 mg] Ketorolac [Toradol] 10 mg PO Q6H PRN #20 tablet 12/06/19 Unknown Rx Metoclopramide [Reglan] 10 mg PO TID #20 tab 12/06/19 Unknown Rx Tamsulosin [Flomax] 0.4 mg PO QDAY #5 cap 12/06/19 Unknown Rx ED Physical Exam - General Limitations: No Limitations General appearance: alert, in no apparent distress - Head Head exam: Present: atraumatic, normocephalic - Eye Eye exam: Present: normal appearance - ENT ENT exam: Present: mucous membranes moist - Neck Neck exam: Present: normal inspection - Respiratory Respiratory exam: Present: normal lung sounds bilaterally. Absent: respiratory distress - Cardiovascular Cardiovascular Exam: Present: regular rate, normal rhythm. Absent: systolic murmur, diastolic murmur, rubs, gallop - GI/Abdominal GI/Abdominal exam: Present: soft, normal bowel sounds. Absent: tenderness, guarding, rebound - Rectal Rectal exam: Present: deferred - Extremities Exam Extremities exam: Present: normal inspection - Back Exam Back exam: Present: normal inspection, full ROM. Absent: CVA tenderness (R), CVA tenderness (L) - Neurological Exam Neurological exam: Present: alert, oriented X3 - Psychiatric Psychiatric exam: Present: normal affect, normal mood - Skin Skin exam: Present: warm, dry, intact, normal color. Absent: rash ED Course Vital Signs 12/06/19 12/06/19 14:52 18:39 Temperature 98.7 F Pulse Rate 84 81 Respiratory 20 16 Rate Blood Pressure 151/87 Blood Pressure 150/80 [Left] O2 Sat by Pulse 97 99 Oximetry ED Medical Decision Making - Lab Data Result diagrams: 12/06/19 15:50 12/06/19 15:50 Laboratory Last Values WBC 4.9 K/mm3 (4.5-11.0) 12/06/19 15:50 RBC 5.55 M/mm3 (3.65-5.03) H 12/06/19 15:50 Hgb 13.7 gm/dl (11.8-15.2) 12/06/19 15:50 Hct 42.6 % (35.5-45.6) 12/06/19 15:50 MCV 77 fl (84-94) L 12/06/19 15:50 MCH 25 pg (28-32) L 12/06/19 15:50 MCHC 32 % (32-34) 12/06/19 15:50 RDW 15.0 % (13.2-15.2) 12/06/19 15:50 Plt Count 286 K/mm3 (140-440) 12/06/19 15:50 Lymph % (Auto) 30.6 % (13.4-35.0) 12/06/19 15:50 [place] % (Auto) 6.2 % (0.0-7.3) 12/06/19 15:50 Eos % (Auto) 1.1 % (0.0-4.3) 12/06/19 15:50 Baso % (Auto) 0.5 % (0.0-1.8) 12/06/19 15:50 Lymph # 1.5 K/mm3 (1.2-5.4) 12/06/19 15:50 [place]lin # 0.3 K/mm3 (0.0-0.8) 12/06/19 15:50 Eos # 0.1 K/mm3 (0.0-0.4) 12/06/19 15:50 Baso # 0.0 K/mm3 (0.0-0.1) 12/06/19 15:50 Seg Neutrophils % 61.6 % (40.0-70.0) 12/06/19 15:50 Seg Neutrophils # 3.0 K/mm3 (1.8-7.7) 12/06/19 15:50 Sodium 139 mmol/L (137-145) 12/06/19 15:50 Potassium 4.1 mmol/L (3.6-5.0) 12/06/19 15:50 Chloride 101.9 mmol/L (98-107) 12/06/19 15:50 Carbon Dioxide 21 mmol/L (22-30) L 12/06/19 15:50 Anion Gap 20 mmol/L 12/06/19 15:50 BUN 9 mg/dL (9-20) 12/06/19 15:50 Creatinine 0.8 mg/dL (0.8-1.5) 12/06/19 15:50 Estimated GFR > 60 ml/min 12/06/19 15:50 BUN/Creatinine Ratio 11 % 12/06/19 15:50 Glucose 144 mg/dL (75-100) H 12/06/19 15:50 Calcium 9.4 mg/dL (8.4-10.2) 12/06/19 15:50 Total Bilirubin 1.20 mg/dL (0.1-1.2) 12/06/19 15:50 AST 17 units/L (5-40) 12/06/19 15:50 ALT 21 units/L (7-56) 12/06/19 15:50 Alkaline Phosphatase 70 units/L (35-129) 12/06/19 15:50 Total Protein 7.2 g/dL (6.3-8.2) 12/06/19 15:50 Albumin 4.5 g/dL (3.9-5) 12/06/19 15:50 Albumin/Globulin Ratio 1.7 % 12/06/19 15:50 Urine Color Yellow (Yellow) 12/06/19 15:41 Urine Turbidity Clear (Clear) 12/06/19 15:41 Urine pH 5.0 (5.0-7.0) 12/06/19 15:41 Ur Specific [place] 1.024 (1.003-1.030) 12/06/19 15:41 Urine Protein <15 mg/dl mg/dL (Negative) 12/06/19 15:41 Urine Glucose (UA) Neg mg/dL (Negative) 12/06/19 15:41 Urine Ketones Neg mg/dL (Negative) 12/06/19 15:41 Urine Blood Neg (Negative) 12/06/19 15:41 Urine Nitrite Neg (Negative) 12/06/19 15:41 Urine Bilirubin Neg (Negative) 12/06/19 15:41 Urine Urobilinogen 4.0 mg/dL (<2.0) 12/06/19 15:41 Ur Leukocyte Esterase Neg (Negative) 12/06/19 15:41 Urine WBC (Auto) < 1.0 /HPF (0.0-6.0) 12/06/19 15:41 Urine RBC (Auto) 2.0 /HPF (0.0-6.0) 12/06/19 15:41 U Epithel Cells (Auto) < 1.0 /HPF (0-13.0) 12/06/19 15:41 Urine Mucus Few /HPF 12/06/19 15:41 - Radiology Data Radiology results: report reviewed, image reviewed CT ABDOMEN AND PELVIS WITHOUT CONTRAST INDICATION: L FLANK PAIN. TECHNIQUE: Axial CT images were obtained through the abdomen and pelvis without IV contrast. All CT scans at this location are performed using CT dose reduction for ALARA by means of automated exposure control. COMPARISON: CT abdomen pelvis 04/04/2019 FINDINGS: LOWER CHEST: No significant abnormality. LIVER: No significant abnormality. GALLBLADDER: No significant abnormality. BILE DUCTS: No significant abnormality. PANCREAS: No significant abnormality. SPLEEN: No significant abnormality. ADRENALS: No significant abnormality. RIGHT KIDNEY and URETER: Single nonobstructing 2 mm right intrarenal stone. No ureteral stone or hydronephrosis. LEFT KIDNEY and URETER: 2 tiny punctate nonobstructing 1 mm left intrarenal stones. No ureteral stone or hydronephrosis STOMACH and SMALL BOWEL: No significant abnormality. COLON: Mild colonic diverticulosis without CT evidence for diverticulitis. APPENDIX: No significant abnormality. PERITONEUM: No free fluid. No free air. No fluid collection. LYMPH NODES: No significant adenopathy. AORTA and ARTERIES: No significant abnormality. IVC and VEINS: No significant abnormality. URINARY BLADDER: No significant abnormality. REPRODUCTIVE ORGANS: No significant abnormality. ADDITIONAL FINDINGS: None. SKELETAL SYSTEM: No significant abnormality. IMPRESSION: 1. Bilateral nephrolithiasis. 2. Mild colonic diverticulosis Signer Name: Uriel Thomson MD Signed: 12/06/2019 5:06 PM Workstation Name: [id number] Transcribed By: TL Dictated By: Uriel Thomson MD Electronically Authenticated By: Uriel Thomson MD Signed Date/Time: 12/06/19 9983 - Medical Decision Making 39-year-old male presents with abdominal flank pain secondary to nephrolithiasis. Patient does have a history of kidney stones. CT scan of the abdomen resulted, see report above. I discussed findings with the patient. I discussed with patient to follow-up with his primary care physician. I discussed with patient also follow-up with clinical research monitor for management of diverticulosis. Diverticulosis diet restrictions explained Vital signs are normal patient is in no acute distress Critical care attestation.: If time is entered above; I have spent that time in minutes in the direct care of this critically ill patient, excluding procedure time. ED Disposition Clinical Impression: Flank pain, Bilateral nephrolithiasis, Diverticulosis Disposition: TO HOME OR SELFCARE Is pt being admited?: No Does the pt Need Aspirin: No Condition: Stable Instructions: Kidney Stones (ED), Ureteroscopy (GEN), Flank Pain (ED) Additional Instructions: Make sure to follow up with the urologist Dr. Ibarra as discussed. Take all your medications as you've been prescribed. If you have any worsening symptoms or develop new symptoms please return to ED immediately. Prescriptions: Tamsulosin [Flomax] 0.4 mg PO QDAY #5 cap Metoclopramide [Reglan] 10 mg PO TID #20 tab Ketorolac [Toradol] 10 mg PO Q6H PRN #20 tablet PRN Reason: Pain Referrals: FLORIDA IBARRA MD [Staff Physician] - 3-5 Days NILE TURNER MD [Primary Care Provider] - 3-5 Days [facility] [Provider Group] - 3-5 Days Forms: Work/School Release Form(ED) Time of Disposition: 18:27
[2019-12-06 18:40] VITALS: BP 150/80
== END 2019-12-06 18:39 | disposition home or self-care (01) ==
LOC: ED 14:47
DX: N20.0 Calculus of kidney (principal); K57.92 Diverticulitis of intestine, part unspecified, without perforation or abscess without bleeding; I10 Essential (primary) hypertension; M19.90 Unspecified osteoarthritis, unspecified site
CPT/HCPCS: 36415; 74176; 80053; 81001; 85025; 99284

== ENCOUNTER 2020-06-11 15:36 | Emergency (ER) | payer MEDICARE ==
[2020-06-11 16:43] VITALS: BP 141/96
--- NOTE | 2020-06-11 16:47 | Emergency Department Report ---
ED General Adult HPI - General Chief complaint: Back Pain/Injury Stated complaint: BACK PAINS Time Seen by Provider: 06/11/20 16:33 Source: patient Mode of arrival: Ambulatory Limitations: No Limitations - History of Present Illness Initial comments: 40-year-old -Stateless male patient with history of hypertension presents with complaints of low back pain x3 days. He denies any specific injuries or heavy lifting, however states when he was driving in moving his stick shift, he got sudden low back pain. He rates his current pain as a 7/10 in severity and states it is not improving with ibuprofen 800 mg. He denies any loss of bladder/bowel control, numbness/tingling/weakness in his limbs, difficulty with ambulation/movement of his legs, dysuria/hematuria/hematochezia, or history of cancer. Pain occurs with movement only per patient and is sharp in nature. - Related Data Home Medications Medication Instructions Recorded Confirmed Last Taken Aspirin [Aspirin EC] 81 mg PO DAILY 10/06/17 10/06/17 Unknown Cyclobenzaprine [Flexeril 10 MG 10 mg PO TID PRN 10/06/17 10/06/17 Unknown TAB] Diphenoxylate HCl/Atropine 1 each PO PRN 10/06/17 10/06/17 Unknown [Diphenoxylate-Atrop 2.5-0.025] Ziprasidone HCl [Geodon] 80 mg PO BID 10/06/17 10/06/17 Unknown hydroCHLOROthiazide [HCTZ] 12.5 mg PO QDAY 10/06/17 10/06/17 Unknown Previous Rx's Medication Instructions Recorded Last Taken Type Omeprazole 40 mg PO DAILY #30 capsule. 10/08/17 Unknown Rx Ibuprofen [Motrin 800 MG tab] 800 mg PO Q8HR PRN #21 tablet 04/04/19 Unknown Rx Oxycodone HCl/Acetaminophen 1 each PO Q6HR PRN #12 tablet 04/04/19 Unknown Rx [Percocet 7.5/325 mg] Ketorolac [Toradol] 10 mg PO Q6H PRN #20 tablet 12/06/19 Unknown Rx Metoclopramide [Reglan] 10 mg PO TID #20 tab 12/06/19 Unknown Rx Tamsulosin [Flomax] 0.4 mg PO QDAY #5 cap 12/06/19 Unknown Rx Diclofenac Sodium 75 mg PO BID PRN #14 tablet. 06/11/20 Unknown Rx methOCARBAMOL [Robaxin TAB] 1,500 mg PO Q8H PRN #25 tablet 06/11/20 Unknown Rx Allergies Allergy/AdvReac Type Severity Reaction Status Date / Time No Known Allergies Allergy Verified 04/04/19 10:45 ED Review of Systems ROS: Stated complaint: BACK PAINS Other details as noted in HPI Constitutional: denies: chills, diaphoresis, fever, malaise, weakness Respiratory: denies: shortness of breath Cardiovascular: denies: chest pain, palpitations Gastrointestinal: denies: abdominal pain, hematochezia Genitourinary: denies: urgency, dysuria, frequency, hematuria Skin: denies: lesions, change in color Neurological: denies: weakness, numbness, paresthesias, abnormal gait ED Past Medical Hx - Past Medical History Previous Medical History?: No Hx Hypertension: Yes (has been taking BP meds since 06/2017) Hx CVA: No Hx Heart Attack/AMI: No Hx Congestive Heart Failure: No Hx Diabetes: No Hx Deep Vein Thrombosis: No Hx Pulmonary Embolism: No Hx GERD: No Hx Liver Disease: No Hx Renal Disease: No Hx Sickle Cell Disease: No Hx Arthritis: Yes (HANDS) Hx Headaches / Migraines: No Hx Seizures: No Hx Kidney Stones: Yes Hx Psychiatric Treatment: No Hx Asthma: No Hx COPD: No Hx Tuberculosis: No Hx Dementia: No Hx HIV: No Additional medical history: Inguinal HERNIA-REPAIRED, Obesity,. BILATERAL CARPAL TUNNEL - Surgical History Past Surgical History?: Yes Hx Coronary Stent: No Hx Open Heart Surgery: No Hx Pacemaker: No Hx Internal Defibrillator: No Hx Cholecystectomy: No Hx Appendectomy: No Hx Breast Surgery: No Additional Surgical History: KIDNEY STONE SURGERY 2008. HERNIA REPAIR - Social History Smoking Status: Never Smoker Substance Use Type: None - Medications Home Medications: Home Medications Medication Instructions Recorded Confirmed Last Taken Type Aspirin [Aspirin EC] 81 mg PO DAILY 10/06/17 10/06/17 Unknown History Cyclobenzaprine [Flexeril 10 MG 10 mg PO TID PRN 10/06/17 10/06/17 Unknown History TAB] Diphenoxylate HCl/Atropine 1 each PO PRN 10/06/17 10/06/17 Unknown History [Diphenoxylate-Atrop 2.5-0.025] Ziprasidone HCl [Geodon] 80 mg PO BID 10/06/17 10/06/17 Unknown History hydroCHLOROthiazide [HCTZ] 12.5 mg PO QDAY 10/06/17 10/06/17 Unknown History Omeprazole 40 mg PO DAILY #30 capsule. 10/08/17 Unknown Rx Ibuprofen [Motrin 800 MG tab] 800 mg PO Q8HR PRN #21 tablet 04/04/19 Unknown Rx Oxycodone HCl/Acetaminophen 1 each PO Q6HR PRN #12 tablet 04/04/19 Unknown Rx [Percocet 7.5/325 mg] Ketorolac [Toradol] 10 mg PO Q6H PRN #20 tablet 12/06/19 Unknown Rx Metoclopramide [Reglan] 10 mg PO TID #20 tab 12/06/19 Unknown Rx Tamsulosin [Flomax] 0.4 mg PO QDAY #5 cap 12/06/19 Unknown Rx Diclofenac Sodium 75 mg PO BID PRN #14 tablet. 06/11/20 Unknown Rx methOCARBAMOL [Robaxin TAB] 1,500 mg PO Q8H PRN #25 tablet 06/11/20 Unknown Rx ED Physical Exam - General Limitations: No Limitations General appearance: alert, in no apparent distress, obese - Head Head exam: Present: atraumatic, normocephalic - Eye Eye exam: Present: normal appearance - Neck Neck exam: Present: normal inspection, full ROM - Respiratory Respiratory exam: Present: normal lung sounds bilaterally. Absent: respiratory distress - Cardiovascular Cardiovascular Exam: Present: regular rate, normal rhythm. Absent: systolic murmur, diastolic murmur, rubs, gallop - Back Exam Back exam: Present: full ROM. Absent: tenderness, CVA tenderness (R), CVA tenderness (L), paraspinal tenderness, vertebral tenderness - Neurological Exam Neurological exam: Present: alert, oriented X3, normal gait. Absent: motor sensory deficit - Expanded Neurological Exam Expanded Sensory exam: Lower Extremity Light Touch: Normal Motor strength exam: RUE: 5, LUE: 5, RLE: 5, LLE: 5 - Psychiatric Psychiatric exam: Present: normal affect, normal mood - Skin Skin exam: Present: warm, dry, intact, normal color. Absent: rash, cyanosis, diaphoretic, ecchymosis ED Course Vital Signs 06/11/20 06/11/20 15:40 16:43 Temperature 98.7 F Pulse Rate 74 74 Respiratory 20 18 Rate Blood Pressure 161/100 Blood Pressure 141/96 [Left] O2 Sat by Pulse 93 97 Oximetry ED Medical Decision Making - Medical Decision Making 40-year-old -Stateless male patient with history of hypertension presents with complaints of low back pain x3 days. He denies any specific injuries or heavy lifting, however states when he was driving in moving his stick shift, he got sudden low back pain. He rates his current pain as a 7/10 in severity and states it is not improving with ibuprofen 800 mg. He denies any loss of bladder/bowel control, numbness/tingling/weakness in his limbs, difficulty with ambulation/movement of his legs, dysuria/hematuria/hematochezia, or history of cancer. Pain occurs with movement only per patient and is sharp in nature. On exam, patient has full range of motion of the spine and normal sensation in his saddle region. Neuro exam is normal. No deformities of the spine or tenderness to palpation of the vertebrae are noted. History and presentation appear to be consistent with muscle strain/spasm. Will treat with anti- inflammatories and muscle relaxers. His vitals are stable, he is well- appearing, and he is stable for discharge home. Recommend follow-up with primary care within 3 to 5 days. Strict return precautions were discussed in detail with patient who verbalized understanding. Critical care attestation.: If time is entered above; I have spent that time in minutes in the direct care of this critically ill patient, excluding procedure time. ED Disposition Clinical Impression: Acute low back pain Qualifiers: Back pain laterality: bilateral Sciatica presence: without sciatica Qualified Code(s): M54.5 - Low back pain Disposition: DC-01 TO HOME OR SELFCARE Is pt being admited?: No Condition: Stable Instructions: Low Back Strain (ED) Prescriptions: Diclofenac Sodium 75 mg PO BID PRN #[address] tablet[address] GONZALES Reason: pain methOCARBAMOL [Robaxin TAB] 1,500 mg PO Q8H PRN #25 tablet PRN Reason: muscle spasm/tightness Referrals: PRIMARY CARE, [Referring] - 2-3 Days
[2020-06-11] MEDS ORDERED: KETOROLAC 60 MG/2 ML INJ IM ONE (16:48)
== END 2020-06-11 17:18 | disposition home or self-care (01) ==
LOC: ED 15:36
DX: M54.5 Low back pain (principal); I10 Essential (primary) hypertension; M13.88 Other specified arthritis, other site; Z79.899 Other long term (current) drug therapy
CPT/HCPCS: 96372; 99282; J1885

== ENCOUNTER 2020-06-18 11:30 | Emergency (ER) | payer MEDICARE ==
[2020-06-18 11:54] VITALS: BP 171/102
[2020-06-18] MEDS ORDERED: ACETAMINOPHEN 500 MG TAB PO ONE (20:34)
[2020-06-18] MEDS ORDERED: IBUPROFEN 800 MG TAB PO ONE (20:34)
--- NOTE | 2020-06-18 21:05 | Emergency Department Report ---
ED Back Pain/Injury HPI - General Chief Complaint: Back Pain/Injury Stated Complaint: BACK PAIN Source: patient Limitations: No Limitations - History of Present Illness Initial Comments: Patient is a 40-year-old -Martiniquais male with a history of hypertension, kidney stones and chronic osteoarthritis who presents to the ED with worsening low back pain that radiates to the lower extremities bilaterally for the last 1 week. Patient states that he was initially evaluated in this ED and given injection in his buttocks and states that the area around the injection site has bruised of and that his back pain though better than it was 1 week ago but now it radiates to his lower extremities bilaterally. Patient denies traumatic injury, fall, nausea and vomiting, hematuria, dizziness, syncope, chest pain, shortness of breath, numbness and tingling or weakness of lower extremities bilaterally, testicular pain, abdominal pain, fever, chills, neck pain, or change in vision and heavy lifting. MD Complaint: back pain, other (bilateral leg muscle spasm) -: Sudden, week(s) (1) Similar Symptoms Previously: Yes Place: home Radiation: left leg, right leg Severity: moderate Severity scale (0 -10): 6 Quality: sharp, aching Consistency: constant Improves With: none Worsens With: movement, walking Context: turning/twisting Associated Symptoms: denies other symptoms. denies: confusion, weakness, chest pain, numbness, cough, difficulty urinating, diaphoresis, incontinence, headaches, abdominal pain, loss of appetite, malaise, nausea/vomiting, rash, seizure, shortness of breath, syncope - Related Data Home Medications Medication Instructions Recorded Confirmed Last Taken Aspirin [Aspirin EC] 81 mg PO DAILY 10/06/17 10/06/17 Unknown Cyclobenzaprine [Flexeril 10 MG 10 mg PO TID PRN 10/06/17 10/06/17 Unknown TAB] Diphenoxylate HCl/Atropine 1 each PO PRN 10/06/17 10/06/17 Unknown [Diphenoxylate-Atrop 2.5-0.025] Ziprasidone HCl [Geodon] 80 mg PO BID 10/06/17 10/06/17 Unknown hydroCHLOROthiazide [HCTZ] 12.5 mg PO QDAY 10/06/17 10/06/17 Unknown Previous Rx's Medication Instructions Recorded Last Taken Type Omeprazole 40 mg PO DAILY #30 capsule. 10/08/17 Unknown Rx Oxycodone HCl/Acetaminophen 1 each PO Q6HR PRN #12 tablet 04/04/19 Unknown Rx [Percocet 7.5/325 mg] Ketorolac [Toradol] 10 mg PO Q6H PRN #20 tablet 12/06/19 Unknown Rx Metoclopramide [Reglan] 10 mg PO TID #20 tab 12/06/19 Unknown Rx Tamsulosin [Flomax] 0.4 mg PO QDAY #5 cap 12/06/19 Unknown Rx Diclofenac Sodium 75 mg PO BID PRN #14 tablet. 06/11/20 Unknown Rx Ibuprofen [Motrin 800 MG tab] 800 mg PO Q8HR PRN #30 tablet 06/18/20 Unknown Rx methOCARBAMOL [Robaxin TAB] 1,500 mg PO Q8H PRN #30 tablet 06/18/20 Unknown Rx traMADoL [Ultram] 50 mg PO Q6HR PRN #12 tablet 06/18/20 Unknown Rx Allergies Allergy/AdvReac Type Severity Reaction Status Date / Time No Known Allergies Allergy Verified 04/04/19 10:45 ED Review of Systems ROS: Stated complaint: BACK PAIN Other details as noted in HPI Constitutional: denies: chills, fever Eyes: denies: eye pain, eye discharge, vision change ENT: denies: ear pain, throat pain Respiratory: denies: cough, shortness of breath, wheezing Cardiovascular: denies: chest pain, palpitations Endocrine: no symptoms reported Gastrointestinal: denies: abdominal pain, nausea, diarrhea Genitourinary: denies: urgency, dysuria Musculoskeletal: back pain (Low back pain), arthralgia (Bilateral lower extremity pain). denies: joint swelling Skin: denies: rash, lesions Neurological: denies: headache, weakness, paresthesias Psychiatric: denies: anxiety, depression Hematological/Lymphatic: denies: easy bleeding, easy bruising ED Past Medical Hx - Past Medical History Hx Hypertension: Yes (has been taking BP meds since 06/2017) Hx CVA: No Hx Heart Attack/AMI: No Hx Congestive Heart Failure: No Hx Diabetes: No Hx Deep Vein Thrombosis: No Hx Pulmonary Embolism: No Hx GERD: No Hx Liver Disease: No Hx Renal Disease: No Hx Sickle Cell Disease: No Hx Arthritis: Yes (HANDS) Hx Headaches / Migraines: No Hx Seizures: No Hx Kidney Stones: Yes Hx Psychiatric Treatment: No Hx Asthma: No Hx COPD: No Hx Tuberculosis: No Hx Dementia: No Hx HIV: No Additional medical history: Inguinal HERNIA-REPAIRED, Obesity,. BILATERAL CARPAL TUNNEL - Surgical History Hx Coronary Stent: No Hx Open Heart Surgery: No Hx Pacemaker: No Hx Internal Defibrillator: No Hx Cholecystectomy: No Hx Appendectomy: No Hx Breast Surgery: No Additional Surgical History: KIDNEY STONE SURGERY 2008. HERNIA REPAIR - Social History Smoking Status: Never Smoker Substance Use Type: None - Medications Home Medications: Home Medications Medication Instructions Recorded Confirmed Last Taken Type Aspirin [Aspirin EC] 81 mg PO DAILY 10/06/17 10/06/17 Unknown History Cyclobenzaprine [Flexeril 10 MG 10 mg PO TID PRN 10/06/17 10/06/17 Unknown History TAB] Diphenoxylate HCl/Atropine 1 each PO PRN 10/06/17 10/06/17 Unknown History [Diphenoxylate-Atrop 2.5-0.025] Ziprasidone HCl [Geodon] 80 mg PO BID 10/06/17 10/06/17 Unknown History hydroCHLOROthiazide [HCTZ] 12.5 mg PO QDAY 10/06/17 10/06/17 Unknown History Omeprazole 40 mg PO DAILY #30 capsule. 10/08/17 Unknown Rx Oxycodone HCl/Acetaminophen 1 each PO Q6HR PRN #12 tablet 04/04/19 Unknown Rx [Percocet 7.5/325 mg] Ketorolac [Toradol] 10 mg PO Q6H PRN #20 tablet 12/06/19 Unknown Rx Metoclopramide [Reglan] 10 mg PO TID #20 tab 12/06/19 Unknown Rx Tamsulosin [Flomax] 0.4 mg PO QDAY #5 cap 12/06/19 Unknown Rx Diclofenac Sodium 75 mg PO BID PRN #14 tablet. 06/11/20 Unknown Rx Ibuprofen [Motrin 800 MG tab] 800 mg PO Q8HR PRN #30 tablet 06/18/20 Unknown Rx methOCARBAMOL [Robaxin TAB] 1,500 mg PO Q8H PRN #30 tablet 06/18/20 Unknown Rx traMADoL [Ultram] 50 mg PO Q6HR PRN #12 tablet 06/18/20 Unknown Rx ED Physical Exam - General Limitations: No Limitations General appearance: alert, in no apparent distress - Head Head exam: Present: atraumatic, normocephalic, normal inspection - Eye Eye exam: Present: normal appearance, PERRL, EOMI Pupils: Present: normal accommodation - ENT ENT exam: Present: normal exam, normal orophraynx, mucous membranes moist, TM's normal bilaterally, normal external ear exam - Neck Neck exam: Present: normal inspection, full ROM - Respiratory Respiratory exam: Present: normal lung sounds bilaterally. Absent: respiratory distress, wheezes, rales, rhonchi, accessory muscle use, decreased breath sounds, prolonged expiratory - Cardiovascular Cardiovascular Exam: Present: regular rate, normal rhythm, normal heart sounds. Absent: systolic murmur, diastolic murmur, rubs, gallop - GI/Abdominal GI/Abdominal exam: Present: soft, normal bowel sounds. Absent: tenderness, guarding, rebound, hyperactive bowel sounds, hypoactive bowel sounds - Extremities Exam Extremities exam: Present: normal inspection, full ROM, tenderness (Palpable posterior bilateral thigh tenderness), normal capillary refill. Absent: pedal edema, joint swelling, calf tenderness - Back Exam Back exam: Present: normal inspection, full ROM, tenderness (Palpable lumbosacral paraspinal musculoskeletal tenderness), muscle spasm, paraspinal tenderness. Absent: CVA tenderness (R), CVA tenderness (L), vertebral tenderness - Neurological Exam Neurological exam: Present: alert, oriented X3, CN II-XII intact, normal gait, reflexes normal - Psychiatric Psychiatric exam: Present: normal affect, normal mood - Skin Skin exam: Present: warm, dry, intact, normal color. Absent: rash ED Course Vital Signs 06/18/20 11:50 Temperature 98.8 F Pulse Rate 84 Respiratory 20 Rate Blood Pressure 171/102 [Right] O2 Sat by Pulse 96 Oximetry ED Medical Decision Making - Medical Decision Making This is a 40-year-old -Martiniquais male with a history of hypertension, kidney stones and chronic osteoarthritis who presents to the ED with worsening low back pain that radiates to the lower extremities bilaterally for the last 1 week. Patient states that he was initially evaluated in this ED and given injection in his buttocks and states that the area around the injection site has bruised of and that his back pain though better than it was 1 week ago but now it radiates to his lower extremities bilaterally. In the ED, patient is alert and oriented x3 and is not in distress. Patient was treated for pain in the ED and was discharged home on pain medication and muscle relaxants. Patient was advised to follow-up with his primary care physician in 5 to 7 days for reevaluation or return to the ED immediately if symptoms get worse. - Differential Diagnosis Muscle spasm; muscle strain; sciatica; chronic back pain; lumbago Critical care attestation.: If time is entered above; I have spent that time in minutes in the direct care of this critically ill patient, excluding procedure time. ED Disposition Clinical Impression: Spasm of muscle of lower back Acute low back pain with bilateral sciatica Qualifiers: Back pain laterality: bilateral Qualified Code(s): M54.42 - Lumbago with sciatica, left side; M54.41 - Lumbago with sciatica, right side Muscle strain of lower extremity Qualifiers: Encounter type: initial encounter Laterality: unspecified laterality Qualified Code(s): S86.919A - Strain of unspecified muscle(s) and tendon(s) at lower leg level, unspecified leg, initial encounter Disposition: TO HOME OR SELFCARE Is pt being admited?: No Does the pt Need Aspirin: No Condition: Stable Instructions: Muscle Strain (ED), Muscle Spasm (ED), Acute Low Back Pain (ED), Sciatica (ED) Additional Instructions: Take medication with food, drink plenty of fluids and follow-up with your primary care physician in 5 to 7 days for reevaluation. Return to the ED immediately if symptoms get worse. Prescriptions: Ibuprofen [Motrin 800 MG tab] 800 mg PO Q8HR PRN #30 tablet PRN Reason: Pain , Severe (7-10) methOCARBAMOL [Robaxin TAB] 1,500 mg PO Q8H PRN #30 tablet PRN Reason: muscle spasm/tightness traMADoL [Ultram] 50 mg PO Q6HR PRN #12 tablet PRN Reason: Pain Referrals: [facility] [place] [Provider Group] - 3-5 Days Forms: Work/School Release Form(ED) Time of Disposition: 21:02 Print Language: YORUBA
== END 2020-06-18 14:39 | disposition home or self-care (01) ==
LOC: ED 11:30
DX: S86.911A Strain of unspecified muscle(s) and tendon(s) at lower leg level, right leg, initial encounter (principal); S86.912A Strain of unspecified muscle(s) and tendon(s) at lower leg level, left leg, initial encounter; M54.42 Lumbago with sciatica, left side; M62.830 Muscle spasm of back; I10 Essential (primary) hypertension; M19.042 Primary osteoarthritis, left hand; M19.041 Primary osteoarthritis, right hand; Z98.890 Other specified postprocedural states; Z79.899 Other long term (current) drug therapy; Z87.442 Personal history of urinary calculi; X58.XXXA Exposure to other specified factors, initial encounter; Y93.89 Activity, other specified; Y92.009 Unspecified place in unspecified non-institutional (private) residence as the place of occurrence of the external cause; Y99.8 Other external cause status
CPT/HCPCS: 99282

== ENCOUNTER 2020-07-23 16:46 | Emergency (ER) | payer MEDICARE ==
[2020-07-23 16:54] VITALS: BP 152/95
--- NOTE | 2020-07-23 18:53 | Emergency Department Report ---
ED N/V/D HPI - General Chief complaint: Nausea/Vomiting/Diarrhea Stated complaint: UPSET STOMACH Time Seen by Provider: 07/23/20 18:47 Source: patient Mode of arrival: Ambulatory Limitations: No Limitations - History of Present Illness MD complaint: diarrhea (after eating ribs mom cooked and several stools for 24 hours. ) Description of Diarrhea: mucous Associated Abdominal Pain: No Radiation: none Improves with: none Worsens with: eating Context: possible food poisoning Associated Symptoms: denies: myalgias, chest pain, cough, diaphoresis, malaise, nausea/vomiting, weakness - Related Data Home Medications Medication Instructions Recorded Confirmed Last Taken Aspirin [Aspirin EC] 81 mg PO DAILY 10/06/17 10/06/17 Unknown Cyclobenzaprine [Flexeril 10 MG 10 mg PO TID PRN 10/06/17 10/06/17 Unknown TAB] Diphenoxylate HCl/Atropine 1 each PO PRN 10/06/17 10/06/17 Unknown [Diphenoxylate-Atrop 2.5-0.025] Ziprasidone HCl [Geodon] 80 mg PO BID 10/06/17 10/06/17 Unknown hydroCHLOROthiazide [HCTZ] 12.5 mg PO QDAY 10/06/17 10/06/17 Unknown Previous Rx's Medication Instructions Recorded Last Taken Type Omeprazole 40 mg PO DAILY #30 capsule. 10/08/17 Unknown Rx Oxycodone HCl/Acetaminophen 1 each PO Q6HR PRN #12 tablet 04/04/19 Unknown Rx [Percocet 7.5/325 mg] Ketorolac [Toradol] 10 mg PO Q6H PRN #20 tablet 12/06/19 Unknown Rx Metoclopramide [Reglan] 10 mg PO TID #20 tab 12/06/19 Unknown Rx Tamsulosin [Flomax] 0.4 mg PO QDAY #5 cap 12/06/19 Unknown Rx Diclofenac Sodium 75 mg PO BID PRN #14 tablet. 06/11/20 Unknown Rx Ibuprofen [Motrin 800 MG tab] 800 mg PO Q8HR PRN #30 tablet 06/18/20 Unknown Rx methOCARBAMOL [Robaxin TAB] 1,500 mg PO Q8H PRN #30 tablet 06/18/20 Unknown Rx traMADoL [Ultram] 50 mg PO Q6HR PRN #12 tablet 06/18/20 Unknown Rx Ciprofloxacin HCl [Ciprofloxacin 500 mg PO Q12HR #14 tab 07/23/20 Unknown Rx TAB] metroNIDAZOLE [Flagyl] 500 mg PO Q12HR #10 tab 07/23/20 Unknown Rx Allergies Allergy/AdvReac Type Severity Reaction Status Date / Time No Known Allergies Allergy Verified 04/04/19 10:45 ED Review of Systems ROS: Stated complaint: UPSET STOMACH Other details as noted in HPI ED Past Medical Hx - Past Medical History Previous Medical History?: Yes Hx Hypertension: Yes (has been taking BP meds since 06/2017) Hx CVA: No Hx Heart Attack/AMI: No Hx Congestive Heart Failure: No Hx Diabetes: No Hx Deep Vein Thrombosis: No Hx Pulmonary Embolism: No Hx GERD: No Hx Liver Disease: No Hx Renal Disease: No Hx Sickle Cell Disease: No Hx Arthritis: Yes (HANDS) Hx Headaches / Migraines: No Hx Seizures: No Hx Kidney Stones: Yes Hx Psychiatric Treatment: No Hx Asthma: No Hx COPD: No Hx Tuberculosis: No Hx Dementia: No Hx HIV: No Additional medical history: Inguinal HERNIA-REPAIRED, Obesity,. BILATERAL CARPAL TUNNEL - Surgical History Hx Coronary Stent: No Hx Open Heart Surgery: No Hx Pacemaker: No Hx Internal Defibrillator: No Hx Cholecystectomy: No Hx Appendectomy: No Hx Breast Surgery: No Additional Surgical History: KIDNEY STONE SURGERY 2008. HERNIA REPAIR - Social History Smoking Status: Never Smoker Substance Use Type: None - Medications Home Medications: Home Medications Medication Instructions Recorded Confirmed Last Taken Type Aspirin [Aspirin EC] 81 mg PO DAILY 10/06/17 10/06/17 Unknown History Cyclobenzaprine [Flexeril 10 MG 10 mg PO TID PRN 10/06/17 10/06/17 Unknown History TAB] Diphenoxylate HCl/Atropine 1 each PO PRN 10/06/17 10/06/17 Unknown History [Diphenoxylate-Atrop 2.5-0.025] Ziprasidone HCl [Geodon] 80 mg PO BID 10/06/17 10/06/17 Unknown History hydroCHLOROthiazide [HCTZ] 12.5 mg PO QDAY 10/06/17 10/06/17 Unknown History Omeprazole 40 mg PO DAILY #30 capsule. 10/08/17 Unknown Rx Oxycodone HCl/Acetaminophen 1 each PO Q6HR PRN #12 tablet 04/04/19 Unknown Rx [Percocet 7.5/325 mg] Ketorolac [Toradol] 10 mg PO Q6H PRN #20 tablet 12/06/19 Unknown Rx Metoclopramide [Reglan] 10 mg PO TID #20 tab 12/06/19 Unknown Rx Tamsulosin [Flomax] 0.4 mg PO QDAY #5 cap 12/06/19 Unknown Rx Diclofenac Sodium 75 mg PO BID PRN #14 tablet.dr 06/11/20 Unknown Rx Ibuprofen [Motrin 800 MG tab] 800 mg PO Q8HR PRN #30 tablet 06/18/20 Unknown Rx methOCARBAMOL [Robaxin TAB] 1,500 mg PO Q8H PRN #30 tablet 06/18/20 Unknown Rx traMADoL [Ultram] 50 mg PO Q6HR PRN #12 tablet 06/18/20 Unknown Rx Ciprofloxacin HCl [Ciprofloxacin 500 mg PO Q12HR #14 tab 07/23/20 Unknown Rx TAB] metroNIDAZOLE [Flagyl] 500 mg PO Q12HR #10 tab 07/23/20 Unknown Rx ED Physical Exam - General Limitations: No Limitations General appearance: alert, in no apparent distress - Head Head exam: Present: atraumatic, normocephalic - Eye Eye exam: Present: normal appearance - ENT ENT exam: Present: mucous membranes moist - Neck Neck exam: Present: normal inspection - Respiratory Respiratory exam: Present: normal lung sounds bilaterally. Absent: respiratory distress, wheezes, chest wall tenderness, accessory muscle use - Cardiovascular Cardiovascular Exam: Present: regular rate, normal rhythm. Absent: systolic murmur, diastolic murmur, rubs, gallop - GI/Abdominal GI/Abdominal exam: Present: soft, normal bowel sounds. Absent: distended, tenderness - Rectal Rectal exam: Present: deferred - Extremities Exam Extremities exam: Present: normal inspection - Back Exam Back exam: Present: normal inspection. Absent: CVA tenderness (R), CVA tenderne ss (L) - Neurological Exam Neurological exam: Present: alert, oriented X3, CN II-XII intact - Psychiatric Psychiatric exam: Present: normal affect, normal mood - Skin Skin exam: Present: warm, dry, intact, normal color. Absent: rash ED Course Vital Signs 07/23/20 16:54 Temperature 97.8 F Pulse Rate 87 Respiratory 18 Rate Blood Pressure 152/95 [Right] O2 Sat by Pulse 94 Oximetry ED Medical Decision Making - Medical Decision Making Patient presents to the emergency department with nausea, vomiting, diarrhea, differential diagnosis includes possible acute gastroenteritis. Abdominal examination without peritoneal signs. Currently patient is euvolemic without evidence of dehydration. No evidence of surgical abdomen or other acute medical emergency including bowel obstruction, viscus perforation, vascular catastrophe, appendicitis, cholecystitis at this time. Presentation not consistent with other acute emergent causes of vomiting and diarrhea at this time. No indication for abdominal imaging Plan supportive care, oral/IV rehydration, antiemetics and reassess Critical care attestation.: If time is entered above; I have spent that time in minutes in the direct care of this critically ill patient, excluding procedure time. ED Disposition Clinical Impression: Diarrhea Disposition: DC-01 TO HOME OR SELFCARE Is pt being admited?: No Does the pt Need Aspirin: No Condition: Stable Instructions: Food Choices to Help Relieve Diarrhea, Adult, Food Poisoning, Rotavirus Infection, Adult Prescriptions: Ciprofloxacin HCl [Ciprofloxacin TAB] 500 mg PO Q12HR #14 tab metroNIDAZOLE [Flagyl] 500 mg PO Q12HR #10 tab Referrals: HUBERT YANEZ MD [Staff Physician] - 3-5 Days
== END 2020-07-23 21:12 | disposition home or self-care (01) ==
LOC: ED 16:46
DX: R19.7 Diarrhea, unspecified (principal); R11.2 Nausea with vomiting, unspecified; I10 Essential (primary) hypertension; M19.91 Primary osteoarthritis, unspecified site; Z98.890 Other specified postprocedural states; Z79.1 Long term (current) use of non-steroidal anti-inflammatories (NSAID); Z79.899 Other long term (current) drug therapy
CPT/HCPCS: 99282

== ENCOUNTER 2020-08-20 12:29 | Emergency (ER) | payer MEDICARE ==
--- NOTE | 2020-08-20 13:01 | Emergency Department Report ---
Chief Complaint: Medical Clearance Stated Complaint: REFILL MEDICATION Time Seen by Provider: 08/20/20 12:56 - HPI History of Present Illness: Patient is a 40-year-old male who presents emergency room for medication refill. He states that he would like a refill for Lomotil. It appears he has been on this medication since 2018. He states he previously used to see Dr. Blackwood but states that he went on a business. He states that he is now seeing a doctor at [facility]. He states he has another appointment on this (08/23/2020) with his [facility] doctor. He states he has chronic diarrhea which she has had for years. He denies any abdominal pain, nausea, vomiting, fever, blood in the stool, hematochezia, hematemesis, melena. He has not seen a GI doctor. No allergies to medications. Vitals are normal on exam: Non toxic appearing, no acute distress atraumatic, normocephalic normal appearance of the eyes, PERRL, EOMI, no periorbital edema or ecchymosis moist mucus membranes regular heart rate and rhythm, no gallops, no rubs, no murmurs breath sounds are clear bilaterally, no w/r/r No abdominal tenderness on exam, no guarding, no rebound, no rigidity, no peritoneal signs, normal bowel sounds A&O x4, no focal neuro deficit skin is warm, dry, intact Patient is presenting for a medication refill He will states that he wants a refill for Lomotil Patient states that he has chronic diarrhea He denies any abdominal pain, nausea, vomiting, fever, blood in the stool, hematochezia, hematemesis, melena His vitals are stable, he has no abdominal tenderness on exam, no guarding, no rebound, rigidity, no peritoneal signs, normal bowel sounds He declines any work-up for his chronic diarrhea states that he wants a refill for Lomotil He states he is already seeing doctors at [facility] and has an upcoming appointment Due to the abuse potential for Lomotil, advised patient that we could not refill this medication and that he would need to get this medication from his primary care doctor or a GI specialist Offered patient further work-up and he politely declined Discussed supportive care and symptomatic treatment with patient Discussed very strict return precautions in detail with patient Patient will be referred to GI and his primary care doctor Medical screening examination performed and there is no threat to life or limb at this time - Exam Vital Signs: Vital Signs 08/20/20 12:32 Temperature 98.8 F Pulse Rate 76 Respiratory 20 Rate Blood Pressure 135/85 O2 Sat by Pulse 95 Oximetry MSE screening note: Focused history and physical exam performed. ED Disposition for MSE Clinical Impression: Medication refill, Chronic diarrhea Disposition: MED SCREENING EXAM-LEFT Is pt being admited?: No Does the pt Need Aspirin: No Condition: Stable Additional Instructions: Please increase your water intake. Please follow-up with your primary care doctor. Please keep your appointment with your primary care doctor on . Please follow-up with a GI doctor. Return to emergency room immediately for any new or worsening symptoms including but not limited to abdominal pain, fever, blood or pus in the stool, etc. Referrals: your, primary care doctor [Other] - 2-3 Days [facility] [Provider Group] - 2-3 Days Time of Disposition: 13:03 Print Language: JAPANESE
[2020-08-20 13:54] VITALS: BP 170/95
== END 2020-08-20 14:04 | disposition left against medical advice (07) ==
LOC: ED 12:29
DX: R19.7 Diarrhea, unspecified (principal); Z76.0 Encounter for issue of repeat prescription; Z53.21 Procedure and treatment not carried out due to patient leaving prior to being seen by health care provider

== ENCOUNTER 2020-12-07 09:47 | Emergency (ER) | payer MEDICARE ==
[2020-12-07 09:55] VITALS: BP 152/93
--- NOTE | 2020-12-07 11:31 | XRay Report ---
Left knee radiograph, 3 views. HISTORY: Pain, swollen. COMPARISON: None FINDINGS: No acute fracture or malalignment of the left knee. Joint spaces are preserved. Enthesopath ic change versus sequela of prior trauma at the superior pole of the patella. No joint capsular diste ntion. IMPRESSION: No acute osseous findings of the left knee. Chronic, degenerative changes detailed above. Signer Name: Alex Jones MD Signed: 12/07/2020 11:27 AM Workstation Name: [id number]
--- NOTE | 2020-12-07 11:54 | Emergency Department Report ---
ED Lower Extremity HPI - General Chief Complaint: Extremity Injury, Lower Stated Complaint: RT LEG POSSIBLE FX Time Seen by Provider: 12/07/20 10:04 Source: patient Mode of arrival: Ambulatory Limitations: No Limitations - History of Present Illness Initial Comments: 40-year-old male was emerge department complaining of left knee pain which occurred while he was in [facility] and had an accidental slip and fall landing onto his knee. Reports having dull pain and throbbing with some swelling. Pain is about a 7-8 out of 10 when it is maximized. Reports no pre-existing injury, no numbness, no tingling. MD Complaint: knee injury Injury: Knee: Left, Right (Pain with palpation standing in) Type of Injury: blunt Place: other Severity: moderate Improves With: nothing Worsens With: weight bearing, movement, palpation Context: fall Associated Symptoms: swelling, able to partially bear weight - Related Data Home Medications Medication Instructions Recorded Confirmed Last Taken Aspirin [Aspirin EC] 81 mg PO DAILY 10/06/17 10/06/17 Unknown Cyclobenzaprine [Flexeril 10 MG 10 mg PO TID PRN 10/06/17 10/06/17 Unknown TAB] Diphenoxylate HCl/Atropine 1 each PO PRN 10/06/17 10/06/17 Unknown [Diphenoxylate-Atrop 2.5-0.025] Ziprasidone HCl [Geodon] 80 mg PO BID 10/06/17 10/06/17 Unknown hydroCHLOROthiazide [HCTZ] 12.5 mg PO QDAY 10/06/17 10/06/17 Unknown Previous Rx's Medication Instructions Recorded Last Taken Type Omeprazole 40 mg PO DAILY #30 capsule. 10/08/17 Unknown Rx Oxycodone HCl/Acetaminophen 1 each PO Q6HR PRN #12 tablet 04/04/19 Unknown Rx [Percocet 7.5/325 mg] Ketorolac [Toradol] 10 mg PO Q6H PRN #20 tablet 12/06/19 Unknown Rx Metoclopramide [Reglan] 10 mg PO TID #20 tab 12/06/19 Unknown Rx Tamsulosin [Flomax] 0.4 mg PO QDAY #5 cap 12/06/19 Unknown Rx Diclofenac Sodium 75 mg PO BID PRN #14 tablet. 06/11/20 Unknown Rx Ibuprofen [Motrin 800 MG tab] 800 mg PO Q8HR PRN #30 tablet 06/18/20 Unknown Rx methOCARBAMOL [Robaxin TAB] 1,500 mg PO Q8H PRN #30 tablet 06/18/20 Unknown Rx traMADoL [Ultram] 50 mg PO Q6HR PRN #12 tablet 06/18/20 Unknown Rx Ciprofloxacin HCl [Ciprofloxacin 500 mg PO Q12HR #14 tab 07/23/20 Unknown Rx TAB] metroNIDAZOLE [Flagyl] 500 mg PO Q12HR #10 tab 07/23/20 Unknown Rx Ketorolac [Toradol] 10 mg PO Q6H PRN #10 tablet 12/07/20 Unknown Rx Allergies Allergy/AdvReac Type Severity Reaction Status Date / Time No Known Allergies Allergy Verified 04/04/19 10:45 ED Review of Systems ROS: Stated complaint: RT LEG POSSIBLE FX Other details as noted in HPI Comment: All other systems reviewed and negative ED Past Medical Hx - Past Medical History Previous Medical History?: Yes Hx Hypertension: Yes (has been taking BP meds since 06/2017) Hx CVA: No Hx Heart Attack/AMI: No Hx Congestive Heart Failure: No Hx Diabetes: No Hx Deep Vein Thrombosis: No Hx Pulmonary Embolism: No Hx GERD: No Hx Liver Disease: No Hx Renal Disease: No Hx Sickle Cell Disease: No Hx Arthritis: Yes (HANDS) Hx Headaches / Migraines: No Hx Seizures: No Hx Kidney Stones: Yes Hx Psychiatric Treatment: No Hx Asthma: No Hx COPD: No Hx Tuberculosis: No Hx Dementia: No Hx HIV: No Additional medical history: Inguinal HERNIA-REPAIRED, Obesity,. BILATERAL CARPAL TUNNEL - Surgical History Past Surgical History?: Yes Hx Coronary Stent: No Hx Open Heart Surgery: No Hx Pacemaker: No Hx Internal Defibrillator: No Hx Cholecystectomy: No Hx Appendectomy: No Hx Breast Surgery: No Additional Surgical History: KIDNEY STONE SURGERY 2008. HERNIA REPAIR - Social History Smoking Status: Never Smoker Substance Use Type: None - Medications Home Medications: Home Medications Medication Instructions Recorded Confirmed Last Taken Type Aspirin [Aspirin EC] 81 mg PO DAILY 10/06/17 10/06/17 Unknown History Cyclobenzaprine [Flexeril 10 MG 10 mg PO TID PRN 10/06/17 10/06/17 Unknown History TAB] Diphenoxylate HCl/Atropine 1 each PO PRN 10/06/17 10/06/17 Unknown History [Diphenoxylate-Atrop 2.5-0.025] Ziprasidone HCl [Geodon] 80 mg PO BID 10/06/17 10/06/17 Unknown History hydroCHLOROthiazide [HCTZ] 12.5 mg PO QDAY 10/06/17 10/06/17 Unknown History Omeprazole 40 mg PO DAILY #30 capsule. 10/08/17 Unknown Rx Oxycodone HCl/Acetaminophen 1 each PO Q6HR PRN #12 tablet 04/04/19 Unknown Rx [Percocet 7.5/325 mg] Ketorolac [Toradol] 10 mg PO Q6H PRN #20 tablet 12/06/19 Unknown Rx Metoclopramide [Reglan] 10 mg PO TID #20 tab 12/06/19 Unknown Rx Tamsulosin [Flomax] 0.4 mg PO QDAY #5 cap 12/06/19 Unknown Rx Diclofenac Sodium 75 mg PO BID PRN #14 tablet. 06/11/20 Unknown Rx Ibuprofen [Motrin 800 MG tab] 800 mg PO Q8HR PRN #30 tablet 06/18/20 Unknown Rx methOCARBAMOL [Robaxin TAB] 1,500 mg PO Q8H PRN #30 tablet 06/18/20 Unknown Rx traMADoL [Ultram] 50 mg PO Q6HR PRN #12 tablet 06/18/20 Unknown Rx Ciprofloxacin HCl [Ciprofloxacin 500 mg PO Q12HR #14 tab 07/23/20 Unknown Rx TAB] metroNIDAZOLE [Flagyl] 500 mg PO Q12HR #10 tab 07/23/20 Unknown Rx Ketorolac [Toradol] 10 mg PO Q6H PRN #10 tablet 12/07/20 Unknown Rx ED Physical Exam - General Limitations: No Limitations General appearance: alert, in no apparent distress - Head Head exam: Present: atraumatic, normocephalic - Eye Eye exam: Present: normal appearance, PERRL, EOMI Pupils: Present: normal accommodation - ENT ENT exam: Present: normal exam, mucous membranes moist - Neck Neck exam: Present: normal inspection, full ROM - Respiratory Respiratory exam: Present: normal lung sounds bilaterally. Absent: respiratory distress - Cardiovascular Cardiovascular Exam: Present: regular rate, normal rhythm. Absent: systolic murmur, diastolic murmur, rubs, gallop - GI/Abdominal GI/Abdominal exam: Present: soft, normal bowel sounds - Rectal Rectal exam: Present: deferred - Extremities Exam Extremities exam: Present: normal inspection, tenderness, normal capillary refill, joint swelling - Expanded Lower Extremity Exam Right Knee exam: Present: full ROM, tenderness, swelling. Absent: abrasion, laceration, ecchymosis, deformity, dislocation, erythema, pain w/ pronatio n/supination, posterior draw sign, pain/laxity with valgus Lower Leg exam: Present: normal inspection Ankle exam: Present: normal inspection Foot/Toe exam: Present: normal inspection - Back Exam Back exam: Present: normal inspection. Absent: CVA tenderness (R), CVA tenderness (L), muscle spasm, paraspinal tenderness - Neurological Exam Neurological exam: Present: alert, oriented X3, CN II-XII intact - Psychiatric Psychiatric exam: Present: normal affect, normal mood - Skin Skin exam: Present: warm, dry, intact, normal color. Absent: rash ED Course Vital Signs 12/07/20 09:51 Temperature 98.1 F Pulse Rate 76 Respiratory 18 Rate Blood Pressure 152/93 ED Lower Extremity MDM - Radiology Data Radiology results: report reviewed [address] [place] [id number] XRay Report Signed Patient: LUCY CORONEL MR#: [id number] : 1980 Acct:[id number] Age/Sex: 40 / M ADM Date: 12/07/20 Loc: ED Attending Dr: Ordering Physician: MANOLO GALLARDO Date of Service: 12/07/20 Procedure(s): XR knee 3V LT Accession Number(s): [id number] cc: MANOLO GALLARDO Fluoro Time In Minutes: Left knee radiograph, 3 views. HISTORY: Pain, swollen. COMPARISON: None FINDINGS: No acute fracture or malalignment of the left knee. Joint spaces are preserved. Enthesopathic change versus sequela of prior trauma at the superior pole of the patella. No joint capsular distention. IMPRESSION: No acute osseous findings of the left knee. Chronic, degenerative changes detailed above. Signer Name: Kelsy Butler MD Signed: 12/07/2020 11:27 AM Workstation Name: [id number] Transcribed By: AYSE Dictated By: KELSY BUTLER MD Electronically Authenticated By: KELSY BUTLER MD Signed Date/Time: 12/07/201126 DD/ 24 TD/TT: Print Cancel - Medical Decision Making 40-year-old [place] male status post trip and fall in [employer] striking the anterior knee on the floor. No significant signs of any internal derangement on examination. Has mild swelling to this suprapatellar region. Although the joint and the patella are again stable. Plan is to ice the plan and [place] wrap for comfort. Follow-up with his primary care provider in the next few days for reevaluation Critical care attestation.: If time is entered above; I have spent that time in minutes in the direct care of this critically ill patient, excluding procedure time. ED Disposition Clinical Impression: Contusion of left knee Disposition: DC- TO HOME OR SELFCARE Is pt being admited?: No Does the pt Need Aspirin: No Condition: Stable Instructions: Contusion, [id number], How to Use Cold Therapy, [id number] Prescriptions: Ketorolac [Toradol] 10 mg PO Q6H PRN #10 tablet PRN Reason: Pain Referrals: PRIMARY CARE, [Primary Care Provider] - 3-5 Days [facility] [Provider Group] - 3-5 Days
== END 2020-12-07 12:45 | disposition home or self-care (01) ==
LOC: ED 09:47
DX: S80.02XA Contusion of left knee, initial encounter (principal); I10 Essential (primary) hypertension; M19.91 Primary osteoarthritis, unspecified site; Z98.890 Other specified postprocedural states; Z79.899 Other long term (current) drug therapy; W01.0XXA Fall on same level from slipping, tripping and stumbling without subsequent striking against object, initial encounter; Y93.89 Activity, other specified; Y92.89 Other specified places as the place of occurrence of the external cause; Y99.8 Other external cause status

== ENCOUNTER 2021-04-11 18:05 | Emergency (ER) | payer MEDICARE ==
[2021-04-11 18:23] VITALS: BP 144/73
--- NOTE | 2021-04-11 20:08 | Event Note ---
ED Screening Note Date of service: 04/11/21 Time: 20:06 ED Screening Note: 40-year-old male presents to the ER today with complaints of substernal chest pain. He states that he started 3 days ago. He states that he has been a constant pain, but the worst pain was when he started on Thursday. At the time it was a 10 out of 10. Currently is a 5 out of 10. He states that he did go to a family practice doctor on Thursday, they did a EKG and a chest x-ray at the office but nothing acute was found and he was given a dose of ibuprofen and he was told that he will likely will need to come to the ER. He states that the pain is sharp, nonradiating, seems to be worse when he coughs and drinks fluids. He denies any associated shortness of breath, he denies any pain with deep breaths, he denies any fever, chills, nausea, vomiting, diaphoresis or abdominal pain. He states that he has "a little hypertension" but does not take any medications for it. Patient was admitted here about 2 years ago for chest pain/cardiac work-up and had a negative stress test including a negative coronary artery CTA. This initial assessment/diagnostic orders/clinical plan/treatment(s) is/are subject to change based on patients health status, clinical progression and re- assessment by fellow clinical providers in the ED. Further treatment and workup at subsequent clinical providers discretion. Patient/guardian urged not to elope from the ED as their condition may be serious if not clinically assessed and managed. Initial orders include: Chest pain order set
[2021-04-11 20:37] LABS: Basophils % (Auto) 0.7 % (0.0-1.8); Eosinophils % (Auto) 0.7 % (0.0-4.3); Hematocrit 38.4 % (35.5-45.6); Hemoglobin 12.7 gm/dl (11.8-15.2); Mean Corpuscular HGB Conc 33 % (32-34); Mean Corpuscular Volume 79 fl (84-94); Monocytes # (Auto) 0.5 K/mm3 (0.0-0.8); Platelet Count 271 K/mm3 (140-440); Red Blood Count 4.84 M/mm3 (3.65-5.03); Red Cell Distribution Width 15.2 % (13.2-15.2)
--- NOTE | 2021-04-11 20:37 | XRay Report ---
CHEST 2 VIEWS INDICATION / CLINICAL INFORMATION: Chest Pain. COMPARISON: 10/06/2017 FINDINGS: SUPPORT DEVICES: None. HEART / MEDIASTINUM: No significant abnormality. LUNGS / PLEURA: No significant pulmonary or pleural abnormality. No pneumothorax. ADDITIONAL FINDINGS: No significant additional findings. IMPRESSION: 1. No acute findings. Signer Name: Aris Woodall MD Signed: 04/11/2021 8:33 PM Workstation Name: [id number]
[2021-04-11 21:03] LABS: Alanine Aminotransferase 23 units/L (7-56); Albumin 4.2 g/dL (3.9-5); BUN/Creatinine Ratio 10; Blood Urea Nitrogen 8 mg/dL (9-20); Calcium 8.7 mg/dL (8.4-10.2); Hemolysis Index 65
--- NOTE | 2021-04-12 03:49 | Emergency Department Report ---
ED Chest Pain HPI - General Chief Complaint: Chest Pain Stated Complaint: PAIN IN CHEST Time Seen by Provider: 04/12/21 01:56 Source: patient Mode of arrival: Ambulatory Limitations: No Limitations - History of Present Illness Initial Comments: Patient is a 40-year-old male who presents for chest pain intermittent since Thursday 3 days ago, patient denies shortness of breath, dizziness, lightheadedness, nausea or vomiting, there is been no diaphoresis. Patient has seen PCP who performed EKG and labs. Advised patient that chest pain was nonspecific however patient is requesting additional evaluation as symptoms have not improved. Patient rates symptoms at 3/10 intermittent. Symptoms are exacerbated by movement and palpation. Symptoms are relieved by nothing tried. Patient denies other history or symptoms. MD Complaint: chest pain - Related Data Home Medications Medication Instructions Recorded Confirmed Last Taken Aspirin [Aspirin EC] 81 mg PO DAILY 10/06/17 10/06/17 Unknown Cyclobenzaprine [Flexeril 10 MG 10 mg PO TID PRN 10/06/17 10/06/17 Unknown TAB] Diphenoxylate HCl/Atropine 1 each PO PRN 10/06/17 10/06/17 Unknown [Diphenoxylate-Atrop 2.5-0.025] Ziprasidone HCl [Geodon] 80 mg PO BID 10/06/17 10/06/17 Unknown hydroCHLOROthiazide [HCTZ] 12.5 mg PO QDAY 10/06/17 10/06/17 Unknown Previous Rx's Medication Instructions Recorded Last Taken Type Omeprazole 40 mg PO DAILY #30 capsule. 10/08/17 Unknown Rx Oxycodone HCl/Acetaminophen 1 each PO Q6HR PRN #12 tablet 04/04/19 Unknown Rx [Percocet 7.5/325 mg] Ketorolac [Toradol] 10 mg PO Q6H PRN #20 tablet 12/06/19 Unknown Rx Metoclopramide [Reglan] 10 mg PO TID #20 tab 12/06/19 Unknown Rx Tamsulosin [Flomax] 0.4 mg PO QDAY #5 cap 12/06/19 Unknown Rx Diclofenac Sodium 75 mg PO BID PRN #14 tablet. 06/11/20 Unknown Rx Ibuprofen [Motrin 800 MG tab] 800 mg PO Q8HR PRN #30 tablet 06/18/20 Unknown Rx methOCARBAMOL [Robaxin TAB] 1,500 mg PO Q8H PRN #30 tablet 06/18/20 Unknown Rx traMADoL [Ultram] 50 mg PO Q6HR PRN #12 tablet 06/18/20 Unknown Rx Ciprofloxacin HCl [Ciprofloxacin 500 mg PO Q12HR #14 tab 07/23/20 Unknown Rx TAB] metroNIDAZOLE [Flagyl] 500 mg PO Q12HR #10 tab 07/23/20 Unknown Rx Ketorolac [Toradol] 10 mg PO Q6H PRN #10 tablet 12/07/20 Unknown Rx Naproxen 500 mg PO BID PRN #30 tablet 04/12/21 Unknown Rx Allergies Allergy/AdvReac Type Severity Reaction Status Date / Time No Known Allergies Allergy Verified 04/11/21 18:11 Heart Score - HEART Score History: Slightly suspicious EKG: Normal Age: < 45 Risk factors: No known risk factors Troponin: < normal limit HEART Score: 0 - EKG Read Time Time EKG Completed: 18:20 EKG Read Time: 18:26 ED Review of Systems ROS: Stated complaint: PAIN IN CHEST Other details as noted in HPI Constitutional: denies: chills, fever Eyes: denies: eye pain, eye discharge, vision change ENT: denies: ear pain, throat pain Respiratory: denies: cough, shortness of breath, wheezing Cardiovascular: chest pain. denies: palpitations Endocrine: no symptoms reported Gastrointestinal: denies: abdominal pain, nausea, vomiting, diarrhea Genitourinary: denies: urgency, dysuria Musculoskeletal: denies: back pain, joint swelling, arthralgia Skin: denies: rash, lesions Neurological: denies: headache, weakness, paresthesias ED Past Medical Hx - Past Medical History Hx Hypertension: Yes (has been taking BP meds since 06/2017) Hx CVA: No Hx Heart Attack/AMI: No Hx Congestive Heart Failure: No Hx Diabetes: No Hx Deep Vein Thrombosis: No Hx Pulmonary Embolism: No Hx GERD: No Hx Liver Disease: No Hx Renal Disease: No Hx Sickle Cell Disease: No Hx Arthritis: Yes (HANDS) Hx Headaches / Migraines: No Hx Seizures: No Hx Kidney Stones: Yes Hx Psychiatric Treatment: No Hx Asthma: No Hx COPD: No Hx Tuberculosis: No Hx Dementia: No Hx HIV: No Additional medical history: Inguinal HERNIA-REPAIRED, Obesity,. BILATERAL CARPAL TUNNEL - Surgical History Hx Coronary Stent: No Hx Open Heart Surgery: No Hx Pacemaker: No Hx Internal Defibrillator: No Hx Cholecystectomy: No Hx Appendectomy: No Hx Breast Surgery: No Additional Surgical History: KIDNEY STONE SURGERY 2008. HERNIA REPAIR - Social History Smoking Status: Never Smoker Substance Use Type: None - Medications Home Medications: Home Medications Medication Instructions Recorded Confirmed Last Taken Type Aspirin [Aspirin EC] 81 mg PO DAILY 10/06/17 10/06/17 Unknown History Cyclobenzaprine [Flexeril 10 MG 10 mg PO TID PRN 10/06/17 10/06/17 Unknown History TAB] Diphenoxylate HCl/Atropine 1 each PO PRN 10/06/17 10/06/17 Unknown History [Diphenoxylate-Atrop 2.5-0.025] Ziprasidone HCl [Geodon] 80 mg PO BID 10/06/17 10/06/17 Unknown History hydroCHLOROthiazide [HCTZ] 12.5 mg PO QDAY 10/06/17 10/06/17 Unknown History Omeprazole 40 mg PO DAILY #30 capsule. 10/08/17 Unknown Rx Oxycodone HCl/Acetaminophen 1 each PO Q6HR PRN #12 tablet 04/04/19 Unknown Rx [Percocet 7.5/325 mg] Ketorolac [Toradol] 10 mg PO Q6H PRN #20 tablet 12/06/19 Unknown Rx Metoclopramide [Reglan] 10 mg PO TID #20 tab 12/06/19 Unknown Rx Tamsulosin [Flomax] 0.4 mg PO QDAY #5 cap 12/06/19 Unknown Rx Diclofenac Sodium 75 mg PO BID PRN #14 tablet. 06/11/20 Unknown Rx Ibuprofen [Motrin 800 MG tab] 800 mg PO Q8HR PRN #30 tablet 06/18/20 Unknown Rx methOCARBAMOL [Robaxin TAB] 1,500 mg PO Q8H PRN #30 tablet 06/18/20 Unknown Rx traMADoL [Ultram] 50 mg PO Q6HR PRN #12 tablet 06/18/20 Unknown Rx Ciprofloxacin HCl [Ciprofloxacin 500 mg PO Q12HR #14 tab 07/23/20 Unknown Rx TAB] metroNIDAZOLE [Flagyl] 500 mg PO Q12HR #10 tab 07/23/20 Unknown Rx Ketorolac [Toradol] 10 mg PO Q6H PRN #10 tablet 12/07/20 Unknown Rx Naproxen 500 mg PO BID PRN #30 tablet 04/12/21 Unknown Rx ED Physical Exam - General Limitations: No Limitations General appearance: alert - Head Head exam: Present: atraumatic, normocephalic - Eye Eye exam: Present: normal appearance, EOMI Pupils: Present: normal accommodation - ENT ENT exam: Present: mucous membranes moist, TM's normal bilaterally - Neck Neck exam: Present: normal inspection, full ROM. Absent: tenderness - Respiratory Respiratory exam: Present: normal lung sounds bilaterally. Absent: respiratory distress, wheezes, stridor, chest wall tenderness - Cardiovascular Cardiovascular Exam: Present: regular rate, normal rhythm, normal heart sounds. Absent: systolic murmur, diastolic murmur, rubs, gallop - GI/Abdominal GI/Abdominal exam: Present: soft, normal bowel sounds. Absent: distended, tenderness, guarding, rebound, rigid - Rectal Rectal exam: Present: deferred - Extremities Exam Extremities exam: Present: normal inspection, full ROM, normal capillary refill. Absent: tenderness, pedal edema - Back Exam Back exam: Present: normal inspection, full ROM. Absent: tenderness, CVA tenderness (R), CVA tenderness (L) - Neurological Exam Neurological exam: Present: alert, oriented X3, CN II-XII intact, normal gait - Psychiatric Psychiatric exam: Present: normal affect, normal mood - Skin Skin exam: Present: warm, dry, intact, normal color. Absent: rash ED Course Vital Signs 04/11/21 18:16 Temperature 99.3 F Pulse Rate 85 Respiratory 20 Rate Blood Pressure 144/73 O2 Sat by Pulse 95 Oximetry KAMI score - Kami Score Age > 65: (0) No Aspirin use within the Past 7 Days: (0) No 3 or more CAD Risk Factors: (0) No 2 or more Angina events in past 24 hrs: (0) No Known CAD with more than 50% Stenosis: (0) No Elevated Cardiac Markers: (0) No ST Deviation Greater than 0.5mm: (0) No KAMI Score: 0 ED Medical Decision Making - Lab Data Result diagrams: 04/11/21 20:21 04/11/21 20:21 Labs 04/11/21 04/11/21 04/12/21 20:21 20: 02:00 WBC 6.0 RBC 4.84 Hgb 12.7 Hct 38.4 MCV 79 L MCH 26 L MCHC 33 RDW 15.2 Plt Count 271 Lymph % (Auto) 33.0 [place] % (Auto) 9.0 H Eos % (Auto) 0.7 Baso % (Auto) 0.7 Lymph # (Auto) 2.0 [place] # (Auto) 0.5 Eos # (Auto) 0.0 Baso # (Auto) 0.0 Seg Neutrophils % 56.6 Seg Neutrophils # 3.4 Sodium 139 Potassium 3.9 Chloride 103.3 Carbon Dioxide 24 Anion Gap 16 BUN 8 L Creatinine 0.8 Estimated GFR > 60 BUN/Creatinine Ratio 10 Glucose 95 Calcium 8.7 Total Bilirubin 1.10 AST 20 ALT 23 Alkaline Phosphatase 63 Troponin T < 0.010 < 0.010 Total Protein 7.2 Albumin 4.2 Albumin/Globulin Ratio 1.4 - EKG Data EKG shows normal: sinus rhythm, axis, intervals, QRS complexes Rate: normal - EKG Data Interpretation: normal EKG (NSR, NO STEMI, ekg interp by ed attending ) - Radiology Data Radiology results: report reviewed, image reviewed CHEST 2 VIEWS INDICATION / CLINICAL INFORMATION: Chest Pain. COMPARISON: 10/06/2017 FINDINGS: SUPPORT DEVICES: None. HEART / MEDIASTINUM: No significant abnormality. LUNGS / PLEURA: No significant pulmonary or pleural abnormality. No pneumothorax. ADDITIONAL FINDINGS: No significant additional findings. IMPRESSION: 1. No acute findings. Signer Name: Aris Woodall MD Signed: 04/11/2021 8:33 PM Workstation Name: [id number] Transcribed By: SS Dictated By: Aris Woodall MD Electronically Authenticated By: Aris Woodall MD Signed Date/Time: 04/11/212032 DD/ 31 TD/TT: - Medical Decision Making Chest x-ray normal no infiltrates no opacities, EKG normal sinus rhythm no ST elevated SD interpreted by ED attending, troponin was less than 0.01x2. Heart score is 0. Plan patient will be DC'd to home with diagnoses atypical chest pain. Patient will continue NSAIDs as needed pain. Patient will return to emergency department should symptoms worsen. Patient verbalized agreement and understanding with discharge plan. Patient DC'd home in stable condition at this time. Critical care attestation.: If time is entered above; I have spent that time in minutes in the direct care of this critically ill patient, excluding procedure time. ED Disposition Clinical Impression: Chest pain Qualifiers: Chest pain type: unspecified Qualified Code(s): R07.9 - Chest pain, unspecified Disposition: DC- TO HOME OR SELFCARE Is pt being admited?: No Does the pt Need Aspirin: No Condition: Stable Instructions: Nonspecific Chest Pain, Adult Additional Instructions: Take medications as prescribed. Follow-up with your doctor in 2 to 3 days as directed. Return to the emergency department should symptoms worsen. Prescriptions: Naproxen 500 mg PO BID PRN #30 tablet PRN Reason: pain Referrals: HUBERT YANEZ MD [Staff Physician] - 3-5 Days Forms: Work/School Release Form(ED) Time of Disposition: 04:07
--- NOTE | 2021-04-12 13:00 | Electrocardiograph Report ---
[facility] Test Date: 2021-04-11 Test Time: 18:20:08 Pat Name: LUCY CORONEL Department: Room: Gender: M Anesthesia Resident: : 1980 Requested By: MEE DAVIS III Order Number: [id number] Reading MD: Monet Thompson Measurements Intervals [place] Rate: 85 P: 68 GA: 159 QRS: 24 QRSD: 102 T: 73 QT: 367 QTc: 436 Interpretive Statements Sinus rhythm Probable left atrial enlargement No previous ECG available for comparison Electronically Signed On 04-12-2021 12:59:51 EDT by Monet Thompson
== END 2021-04-12 04:34 | disposition home or self-care (01) ==
LOC: ED 18:05
DX: R07.9 Chest pain, unspecified (principal); I10 Essential (primary) hypertension; M19.90 Unspecified osteoarthritis, unspecified site; E66.9 Obesity, unspecified; Z98.890 Other specified postprocedural states; Z87.442 Personal history of urinary calculi
CPT/HCPCS: 36415; 71046; 80053; 84484; 85025; 93005; 99283; 99284

== ENCOUNTER 2021-12-17 13:43 | Emergency (ER) | payer MEDICARE ==
[2021-12-17] MEDS ORDERED: KETOROLAC 10 MG TAB PO ONE (15:33)
[2021-12-17] MEDS ORDERED: CYCLOBENZAPRINE 10 MG TAB PO ONE (15:33)
--- NOTE | 2021-12-17 15:58 | XRay Report ---
LUMBAR SPINE 2 VIEWS INDICATION: Low back pain after fall. COMPARISON: No relevant prior imaging study available. FINDINGS: VERTEBRAE: There is mild dextroscoliosis versus patient positioning. No acute fracture. DISC SPACES: Moderate disc space loss is noted at L3-L4 with osteophyte formation. Mild discogenic de generative changes are also noted along the lower thoracic spine and at T12-L1. FACET JOINTS: No significant abnormality. SOFT TISSUES: No significant abnormality. ADDITIONAL FINDINGS: No additional significant findings. IMPRESSION: 1. No acute findings. 2. Mild/moderate thoracolumbar spondylosis with additional findings as above. Signer Name: Dev Kaur MD Signed: 12/17/2021 3:53 PM Workstation Name: [id number]
--- NOTE | 2021-12-17 16:09 | Emergency Department Report ---
ED Back Pain/Injury HPI - General Chief Complaint: Back Pain/Injury Stated Complaint: BACK PAIN Time Seen by Provider: 12/17/21 15:23 Source: patient Limitations: No Limitations - History of Present Illness Initial Comments: 41-year-old black male with no past medical history presents to the emergency department for evaluation of 2-day history of back pain. He states that he s lipped while in the tub on Thursday and hit his lower back and has been having pain since then. He denies loss of consciousness, fever, or urinary symptoms. He states pain is 8 on a 10 point scale. MD Complaint: back pain, back injury -: Sudden, days(s) Similar Symptoms Previously: No (To) Place: home Radiation: none Severity scale (0 -10): 8 Quality: aching Consistency: constant Worsens With: movement Context: fall (Slipped into) Associated Symptoms: denies: confusion, weakness, chest pain, numbness, difficulty walking, cough, difficulty urinating, diaphoresis, incontinence, fever/chills, headaches, abdominal pain, loss of appetite, malaise, nausea/vomiting, seizure, shortness of breath, syncope Treatments Prior to Arrival: NSAIDS - Related Data Home Medications Medication Instructions Recorded Confirmed Last Taken Aspirin [Aspirin EC] 81 mg PO DAILY 10/06/17 10/06/17 Unknown Cyclobenzaprine [Flexeril 10 MG 10 mg PO TID PRN 10/06/17 10/06/17 Unknown TAB] Diphenoxylate HCl/Atropine 1 each PO PRN 10/06/17 10/06/17 Unknown [Diphenoxylate-Atrop 2.5-0.025] Ziprasidone HCl [Geodon] 80 mg PO BID 10/06/17 10/06/17 Unknown hydroCHLOROthiazide [HCTZ] 12.5 mg PO QDAY 10/06/17 10/06/17 Unknown Previous Rx's Medication Instructions Recorded Last Taken Type Omeprazole 40 mg PO DAILY #30 capsule. 10/08/17 Unknown Rx Oxycodone HCl/Acetaminophen 1 each PO Q6HR PRN #12 tablet 04/04/19 Unknown Rx [Percocet 7.5/325 mg] Ketorolac [Toradol] 10 mg PO Q6H PRN #20 tablet 12/06/19 Unknown Rx Metoclopramide [Reglan] 10 mg PO TID #20 tab 12/06/19 Unknown Rx Tamsulosin [Flomax] 0.4 mg PO QDAY #5 cap 12/06/19 Unknown Rx Diclofenac Sodium 75 mg PO BID PRN #14 tablet.dr 06/11/20 Unknown Rx Ibuprofen [Motrin 800 MG tab] 800 mg PO Q8HR PRN #30 tablet 06/18/20 Unknown Rx methOCARBAMOL [Robaxin TAB] 1,500 mg PO Q8H PRN #30 tablet 06/18/20 Unknown Rx traMADoL [Ultram] 50 mg PO Q6HR PRN #12 tablet 06/18/20 Unknown Rx Ciprofloxacin HCl [Ciprofloxacin 500 mg PO Q12HR #14 tab 07/23/20 Unknown Rx TAB] metroNIDAZOLE [Flagyl] 500 mg PO Q12HR #10 tab 07/23/20 Unknown Rx Ketorolac [Toradol] 10 mg PO Q6H PRN #10 tablet 12/07/20 Unknown Rx Naproxen 500 mg PO BID PRN #30 tablet 04/12/21 Unknown Rx Cyclobenzaprine [Flexeril] 10 mg PO TID PRN #21 tab 12/17/21 Unknown Rx Lidocaine [Lidoderm] 1 each TP DAILY PRN #10 patch 12/17/21 Unknown Rx Naproxen [Naprosyn] 500 mg PO BID #14 tab 12/17/21 Unknown Rx Allergies Allergy/AdvReac Type Severity Reaction Status Date / Time No Known Allergies Allergy Verified 04/11/21 18:11 ED Review of Systems ROS: Stated complaint: BACK PAIN Other details as noted in HPI Comment: All other systems reviewed and negative Constitutional: denies: chills, fever Respiratory: denies: cough, shortness of breath, SOB with exertion, SOB at rest Cardiovascular: denies: chest pain, palpitations Gastrointestinal: denies: as per HPI, nausea, vomiting, diarrhea, hematemesis, melena, hematochezia Genitourinary: denies: urgency, dysuria, frequency, hematuria, discharge Musculoskeletal: back pain Skin: denies: rash, lesions Neurological: denies: headache, weakness ED Past Medical Hx - Past Medical History Previous Medical History?: Yes Hx Hypertension: Yes (has been taking BP meds since 06/2017) Hx CVA: No Hx Heart Attack/AMI: No Hx Congestive Heart Failure: No Hx Diabetes: No Hx Deep Vein Thrombosis: No Hx Pulmonary Embolism: No Hx GERD: No Hx Liver Disease: No Hx Renal Disease: No Hx Sickle Cell Disease: No Hx Arthritis: Yes (HANDS) Hx Headaches / Migraines: No Hx Seizures: No Hx Kidney Stones: Yes Hx Psychiatric Treatment: No Hx Asthma: No Hx COPD: No Hx Tuberculosis: No Hx Dementia: No Hx HIV: No Additional medical history: Inguinal HERNIA-REPAIRED, Obesity,. BILATERAL CARPAL TUNNEL - Surgical History Past Surgical History?: Yes Hx Coronary Stent: No Hx Open Heart Surgery: No Hx Pacemaker: No Hx Internal Defibrillator: No Hx Cholecystectomy: No Hx Appendectomy: No Hx Breast Surgery: No Additional Surgical History: KIDNEY STONE SURGERY 2008. HERNIA REPAIR - Social History Smoking Status: Never Smoker Substance Use Type: None - Medications Home Medications: Home Medications Medication Instructions Recorded Confirmed Last Taken Type Aspirin [Aspirin EC] 81 mg PO DAILY 10/06/17 10/06/17 Unknown History Cyclobenzaprine [Flexeril 10 MG 10 mg PO TID PRN 10/06/17 10/06/17 Unknown History TAB] Diphenoxylate HCl/Atropine 1 each PO PRN 10/06/17 10/06/17 Unknown History [Diphenoxylate-Atrop 2.5-0.025] Ziprasidone HCl [Geodon] 80 mg PO BID 10/06/17 10/06/17 Unknown History hydroCHLOROthiazide [HCTZ] 12.5 mg PO QDAY 10/06/17 10/06/17 Unknown History Omeprazole 40 mg PO DAILY #30 capsule. 10/08/17 Unknown Rx Oxycodone HCl/Acetaminophen 1 each PO Q6HR PRN #12 tablet 04/04/19 Unknown Rx [Percocet 7.5/325 mg] Ketorolac [Toradol] 10 mg PO Q6H PRN #20 tablet 12/06/19 Unknown Rx Metoclopramide [Reglan] 10 mg PO TID #20 tab 12/06/19 Unknown Rx Tamsulosin [Flomax] 0.4 mg PO QDAY #5 cap 12/06/19 Unknown Rx Diclofenac Sodium 75 mg PO BID PRN #14 tablet. 06/11/20 Unknown Rx Ibuprofen [Motrin 800 MG tab] 800 mg PO Q8HR PRN #30 tablet 06/18/20 Unknown Rx methOCARBAMOL [Robaxin TAB] 1,500 mg PO Q8H PRN #30 tablet 06/18/20 Unknown Rx traMADoL [Ultram] 50 mg PO Q6HR PRN #12 tablet 06/18/20 Unknown Rx Ciprofloxacin HCl [Ciprofloxacin 500 mg PO Q12HR #14 tab 07/23/20 Unknown Rx TAB] metroNIDAZOLE [Flagyl] 500 mg PO Q12HR #10 tab 07/23/20 Unknown Rx Ketorolac [Toradol] 10 mg PO Q6H PRN #10 tablet 12/07/20 Unknown Rx Naproxen 500 mg PO BID PRN #30 tablet 04/12/21 Unknown Rx Cyclobenzaprine [Flexeril] 10 mg PO TID PRN #21 tab 12/17/21 Unknown Rx Lidocaine [Lidoderm] 1 each TP DAILY PRN #10 patch 12/17/21 Unknown Rx Naproxen [Naprosyn] 500 mg PO BID #14 tab 12/17/21 Unknown Rx ED Physical Exam - General Limitations: No Limitations General appearance: alert, in no apparent distress - Head Head exam: Present: atraumatic, normocephalic - Eye Eye exam: Present: normal appearance. Absent: conjunctival injection - Neck Neck exam: Present: normal inspection. Absent: tenderness - Respiratory Respiratory exam: Absent: respiratory distress - Cardiovascular Cardiovascular Exam: Present: regular rate - GI/Abdominal GI/Abdominal exam: Present: soft. Absent: distended, tenderness - Extremities Exam Extremities exam: Present: normal inspection - Back Exam Back exam: Present: normal inspection, tenderness (Mid lower), paraspinal tenderness. Absent: CVA tenderness (R), CVA tenderness (L), vertebral tenderness - Expanded Back Exam Expanded Back exam: Absent: saddle anesthesia - Neurological Exam Neurological exam: Present: alert, oriented X3, CN II-XII intact, normal gait, reflexes normal. Absent: motor sensory deficit - Psychiatric Psychiatric exam: Present: normal affect, normal mood - Skin Skin exam: Present: warm, dry, intact, normal color ED Course Vital Signs 12/17/21 12/17/21 13:59 16:50 Temperature 98.8 F Pulse Rate 76 78 Respiratory 18 16 Rate Blood Pressure 126/75 130/80 [Right] O2 Sat by Pulse 97 99 Oximetry ED Medical Decision Making - Radiology Data Radiology results: report reviewed, image reviewed X-ray lumbar spine: FINDINGS: VERTEBRAE: There is mild dextroscoliosis versus patient positioning. No acute fracture. DISC SPACES: Moderate disc space loss is noted at L3-L4 with osteophyte formation. Mild discogenic degenerative changes are also noted along the lower thoracic spine and at T12- L1. FACET JOINTS: No significant abnormality. SOFT TISSUES: No significant abnormality. ADDITIONAL FINDINGS: No additional significant findings. IMPRESSION: 1. No acute findings. 2. Mild/moderate thoracolumbar spondylosis with additional findings as above. - Medical Decision Making 41-year-old black male with no past medical history presents to the emergency department for evaluation of 2-day history of back pain. He states that he slip ped while in the tub on Thursday and hit his lower back and has been having pain since then. He denies loss of consciousness, fever, or urinary symptoms. He states pain is 8 on a 10 point scale. X-ray of lumbar spine within normal limits. No gross abnormalities noted on exam, and patient appears nontoxic and nonseptic. Patient will be treated for lower back pain with anti-inflammatories, muscle relaxants, and Lidoderm patch. He is advised to take medications as prescribed and follow-up with primary care provider if no improvement or worsening symptoms he is advised to return to the ER for any concerning symptoms peer Critical care attestation.: If time is entered above; I have spent that time in minutes in the direct care of this critically ill patient, excluding procedure time. ED Disposition Clinical Impression: Lower back pain Qualifiers: Chronicity: acute Back pain laterality: midline Sciatica presence: without sciatica Qualified Code(s): M54.50 - Low back pain, unspecified Disposition: 01 HOME / SELF CARE / HOMELESS Is pt being admited?: No Does the pt Need Aspirin: No Condition: Stable Instructions: Acute Back Pain, Adult, Back Exercises, [id number] Additional Instructions: Take medications as prescribed and follow up with primary care provider if no improvement or worsening symptoms. Prescriptions: Cyclobenzaprine [Flexeril] 10 mg PO TID PRN #21 tab PRN Reason: Muscle Spasm Lidocaine [Lidoderm] 1 each TP DAILY PRN #10 patch PRN Reason: Pain, Moderate (4-6) Naproxen [Naprosyn] 500 mg PO BID #14 tab Referrals: NAVJOT GRACE MD [Staff Physician] - 3-5 Days Forms: Work/School Release Form(ED) Time of Disposition: 16:09
[2021-12-17 16:51] VITALS: BP 130/80
== END 2021-12-17 17:52 | disposition home or self-care (01) ==
LOC: ED 13:43
DX: M54.50 Low back pain, unspecified (principal); I10 Essential (primary) hypertension; M19.90 Unspecified osteoarthritis, unspecified site; N20.0 Calculus of kidney; Z79.899 Other long term (current) drug therapy; Z98.890 Other specified postprocedural states
CPT/HCPCS: 72100; 99283

== ENCOUNTER 2022-01-18 10:21 | Emergency (ER) | payer MEDICARE ==
[2022-01-18 10:38] VITALS: BP 132/68
[2022-01-18] MEDS ORDERED: ALUM-MAG HYDROXIDE-SIMETHICONE 200-200-20MG/5ML ORAL LIQD 30 ML PO ONE (13:57)
[2022-01-18] MEDS ORDERED: DICYCLOMINE 10 MG/5 ML ORAL LIQD PO ONE (13:57)
[2022-01-18] MEDS ORDERED: LIDOCAINE VISCOUS 2% 15 ML ORAL LIQD PO ONE (13:58)
[2022-01-18 14:03] LABS: Hematocrit 41.5 % (35.5-45.6); Hemoglobin 13.3 gm/dl (11.8-15.2); Mean Corpuscular HGB Conc 32 % (32-34); Mean Corpuscular Volume 78 fl (84-94); Platelet Count 265 K/mm3 (140-440); Red Blood Count 5.33 M/mm3 (3.65-5.03); Red Cell Distribution Width 15.2 % (13.2-15.2)
[2022-01-18 14:18] LABS: Alanine Aminotransferase 21 units/L (7-56); Albumin 4.3 g/dL (3.9-5); BUN/Creatinine Ratio 13; Blood Urea Nitrogen 10 mg/dL (9-20); Calcium 9.1 mg/dL (8.4-10.2); Hemolysis Index 5
--- NOTE | 2022-01-18 14:33 | XRay Report ---
ABDOMEN 2 VIEWS INDICATION / CLINICAL INFORMATION: abd pain. COMPARISON: 02/01/2017 FINDINGS: TUBES / LINES: None. BOWEL GAS PATTERN: No significant abnormality. FREE AIR / EXTRALUMINAL GAS: None seen. ADDITIONAL FINDINGS: No significant additional findings. CHEST: Visualized chest shows no significant abnormality. IMPRESSION: 1. No acute findings. Signer Name: Uriel Thomson MD Signed: 01/18/2022 2:28 PM Workstation Name: [id number]
--- NOTE | 2022-01-18 15:16 | Emergency Department Report ---
ED Abdominal Pain HPI - General Chief Complaint: Abdominal Pain Stated Complaint: AB PAIN Time Seen by Provider: 01/18/22 13:51 Source: patient Mode of arrival: Ambulatory Limitations: No Limitations - History of Present Illness Initial Comments: 41-year-old black male with no past medical history presents to the emergency department for evaluation of 2 to 3-day history of epigastric pain. He states that pain has been intermittent and he started to take some medicines that he was prescribed previously for abdominal pain (pills were noted to be Lomotil) he denies nausea, vomiting, fever, diarrhea, and penile discharge. He states that pain is worse is 3 out of 10 and is a burning type feeling. MD Complaint: abdominal pain -: Gradual, days(s) Location: epigastric (2-3) Radiation: none Migration to: no migration Severity: mild Severity scale (0 -10): 5 Quality: burning Consistency: intermittent Associated Symptoms: denies: nausea, vomiting, diarrhea, fever, chills, dysuria, hematemesis, hematochezia, melena, hematuria, anorexia, syncope Treatments Prior to Arrival: other (Lomotil) - Related Data Home Medications Medication Instructions Recorded Confirmed Last Taken Aspirin [Aspirin EC] 81 mg PO DAILY 10/06/17 10/06/17 Unknown Cyclobenzaprine [Flexeril 10 MG 10 mg PO TID PRN 10/06/17 10/06/17 Unknown TAB] Diphenoxylate HCl/Atropine 1 each PO PRN 10/06/17 10/06/17 Unknown [Diphenoxylate-Atrop 2.5-0.025] Ziprasidone HCl [Geodon] 80 mg PO BID 10/06/17 10/06/17 Unknown hydroCHLOROthiazide [HCTZ] 12.5 mg PO QDAY 10/06/17 10/06/17 Unknown Previous Rx's Medication Instructions Recorded Last Taken Type Omeprazole 40 mg PO DAILY #30 capsule. 10/08/17 Unknown Rx Oxycodone HCl/Acetaminophen 1 each PO Q6HR PRN #12 tablet 04/04/19 Unknown Rx [Percocet 7.5/325 mg] Ketorolac [Toradol] 10 mg PO Q6H PRN #20 tablet 12/06/19 Unknown Rx Metoclopramide [Reglan] 10 mg PO TID #20 tab 03/31/20 Unknown Rx Tamsulosin [Flomax] 0.4 mg PO QDAY #5 cap 12/06/19 Unknown Rx Diclofenac Sodium 75 mg PO BID PRN #14 tablet.dr 06/11/20 Unknown Rx Ibuprofen [Motrin 800 MG tab] 800 mg PO Q8HR PRN #30 tablet 06/18/20 Unknown Rx methOCARBAMOL [Robaxin TAB] 1,500 mg PO Q8H PRN #30 tablet 06/18/20 Unknown Rx traMADoL [Ultram] 50 mg PO Q6HR PRN #12 tablet 06/18/20 Unknown Rx Ciprofloxacin HCl [Ciprofloxacin 500 mg PO Q12HR #14 tab 07/23/20 Unknown Rx TAB] metroNIDAZOLE [Flagyl] 500 mg PO Q12HR #10 tab 07/23/20 Unknown Rx Ketorolac [Toradol] 10 mg PO Q6H PRN #10 tablet 12/07/20 Unknown Rx Naproxen 500 mg PO BID PRN #30 tablet 04/12/21 Unknown Rx Cyclobenzaprine [Flexeril] 10 mg PO TID PRN #21 tab 12/17/21 Unknown Rx Lidocaine [Lidoderm] 1 each TP DAILY PRN #10 patch 12/17/21 Unknown Rx Naproxen [Naprosyn] 500 mg PO BID #14 tab 12/17/21 Unknown Rx Famotidine [Pepcid] 40 mg PO QHS #30 tab 01/18/22 Unknown Rx Allergies Allergy/AdvReac Type Severity Reaction Status Date / Time No Known Allergies Allergy Verified 04/11/21 18:11 ED Review of Systems ROS: Stated complaint: AB PAIN Other details as noted in HPI Comment: All other systems reviewed and negative Constitutional: denies: chills, fever, malaise, weakness ENT: denies: congestion Respiratory: denies: cough, shortness of breath, SOB with exertion, SOB at rest, stridor, wheezing Cardiovascular: denies: chest pain, palpitations, dyspnea on exertion, orthopnea, edema, syncope, paroxysmal nocturnal dyspnea Gastrointestinal: abdominal pain. denies: nausea, vomiting, diarrhea, hematemesis, melena, hematochezia Genitourinary: denies: urgency, dysuria, frequency, hematuria, discharge, testicular pain Musculoskeletal: denies: back pain Neurological: denies: headache, weakness Hematological/Lymphatic: denies: easy bleeding, easy bruising ED Past Medical Hx - Past Medical History Hx Hypertension: Yes (has been taking BP meds since 06/2017) Hx CVA: No Hx Heart Attack/AMI: No Hx Congestive Heart Failure: No Hx Diabetes: No Hx Deep Vein Thrombosis: No Hx Pulmonary Embolism: No Hx GERD: No Hx Liver Disease: No Hx Renal Disease: No Hx Sickle Cell Disease: No Hx Arthritis: Yes (HANDS) Hx Headaches / Migraines: No Hx Seizures: No Hx Kidney Stones: Yes Hx Psychiatric Treatment: No Hx Asthma: No Hx COPD: No Hx Tuberculosis: No Hx Dementia: No Hx HIV: No Additional medical history: Inguinal HERNIA-REPAIRED, Obesity,. BILATERAL CARPAL TUNNEL - Surgical History Hx Coronary Stent: No Hx Open Heart Surgery: No Hx Pacemaker: No Hx Internal Defibrillator: No Hx Cholecystectomy: No Hx Appendectomy: No Hx Breast Surgery: No Additional Surgical History: KIDNEY STONE SURGERY 2008. HERNIA REPAIR - Social History Smoking Status: Never Smoker Substance Use Type: None - Medications Home Medications: Home Medications Medication Instructions Recorded Confirmed Last Taken Type Aspirin [Aspirin EC] 81 mg PO DAILY 10/06/17 10/06/17 Unknown History Cyclobenzaprine [Flexeril 10 MG 10 mg PO TID PRN 10/06/17 10/06/17 Unknown History TAB] Diphenoxylate HCl/Atropine 1 each PO PRN 10/06/17 10/06/17 Unknown History [Diphenoxylate-Atrop 2.5-0.025] Ziprasidone HCl [Geodon] 80 mg PO BID 10/06/17 10/06/17 Unknown History hydroCHLOROthiazide [HCTZ] 12.5 mg PO QDAY 10/06/17 10/06/17 Unknown History Omeprazole 40 mg PO DAILY #30 capsule. 10/08/17 Unknown Rx Oxycodone HCl/Acetaminophen 1 each PO Q6HR PRN #12 tablet 04/04/19 Unknown Rx [Percocet 7.5/325 mg] Ketorolac [Toradol] 10 mg PO Q6H PRN #20 tablet 12/06/19 Unknown Rx Metoclopramide [Reglan] 10 mg PO TID #20 tab 12/06/19 Unknown Rx Tamsulosin [Flomax] 0.4 mg PO QDAY #5 cap 12/06/19 Unknown Rx Diclofenac Sodium 75 mg PO BID PRN #14 tablet. 06/11/20 Unknown Rx Ibuprofen [Motrin 800 MG tab] 800 mg PO Q8HR PRN #30 tablet 06/18/20 Unknown Rx methOCARBAMOL [Robaxin TAB] 1,500 mg PO Q8H PRN #30 tablet 06/18/20 Unknown Rx traMADoL [Ultram] 50 mg PO Q6HR PRN #12 tablet 06/18/20 Unknown Rx Ciprofloxacin HCl [Ciprofloxacin 500 mg PO Q12HR #14 tab 07/23/20 Unknown Rx TAB] metroNIDAZOLE [Flagyl] 500 mg PO Q12HR #10 tab 07/23/20 Unknown Rx Ketorolac [Toradol] 10 mg PO Q6H PRN #10 tablet 12/07/20 Unknown Rx Naproxen 500 mg PO BID PRN #30 tablet 04/12/21 Unknown Rx Cyclobenzaprine [Flexeril] 10 mg PO TID PRN #21 tab 12/17/21 Unknown Rx Lidocaine [Lidoderm] 1 each TP DAILY PRN #10 patch 12/17/21 Unknown Rx Naproxen [Naprosyn] 500 mg PO BID #14 tab 12/17/21 Unknown Rx Famotidine [Pepcid] 40 mg PO QHS #30 tab 01/18/22 Unknown Rx ED Physical Exam - General Limitations: No Limitations General appearance: alert, in no apparent distress - Head Head exam: Present: atraumatic, normocephalic - Eye Eye exam: Present: normal appearance. Absent: conjunctival injection, periorbital swelling, periorbital tenderness - Neck Neck exam: Present: normal inspection, full ROM. Absent: tenderness, me ningismus, lymphadenopathy - Respiratory Respiratory exam: Present: normal lung sounds bilaterally. Absent: respiratory distress, wheezes, rales, rhonchi, stridor, chest wall tenderness - Cardiovascular Cardiovascular Exam: Present: regular rate, normal heart sounds - GI/Abdominal GI/Abdominal exam: Present: soft, normal bowel sounds. Absent: distended, tenderness, guarding, rebound, rigid - Extremities Exam Extremities exam: Present: normal inspection, normal capillary refill. Absent: pedal edema, joint swelling, calf tenderness - Back Exam Back exam: Present: normal inspection. Absent: CVA tenderness (R), CVA tenderness (L), paraspinal tenderness, vertebral tenderness - Neurological Exam Neurological exam: Present: alert, oriented X3, normal gait. Absent: reflexes normal - Psychiatric Psychiatric exam: Present: normal affect, normal mood - Skin Skin exam: Present: warm, dry, intact, normal color ED Course Vital Signs 01/18/22 10:35 Temperature 98.2 F Pulse Rate 78 Respiratory 18 Rate Blood Pressure 132/68 [Right] O2 Sat by Pulse 97 Oximetry - Reevaluation(s) Reevaluation #1: 01/18/22 15:19 Abdominal pain resolved after medications. Patient states that he feels much better. ED Medical Decision Making - Lab Data Result diagrams: 01/18/22 13:41 01/18/22 13:41 - Radiology Data Radiology results: report reviewed, image reviewed KUB: FINDINGS: TUBES / LINES: None. BOWEL GAS PATTERN: No significant abnormality. FREE AIR / EXTRALUMINAL GAS: None seen. ADDITIONAL FINDINGS: No significant additional findings. CHEST: Visualized chest shows no significant abnormality. IMPRESSION: 1. No acute findings. - Medical Decision Making 41-year-old black male with no past medical history presents to the emergency department for evaluation of 2 to 3-day history of epigastric pain. He states that pain has been intermittent and he started to take some medicines that he was prescribed previously for abdominal pain (pills were noted to be Lomotil) he denies nausea, vomiting, fever, diarrhea, and penile discharge. He states that pain is worse is 3 out of 10 and is a burning type feeling. No gross abnormalities noted on exam and labs. KUB without any acute abnormalities noted. Symptoms resolved after medication. Patient be discharged home with prescription for Pepcid to take as directed. He is advised to follow-up with his primary care provider if worsening symptoms. He is advised to return to the emergency department as needed. He verbalizes understanding of and agreement with plan of care. Critical care attestation.: If time is entered above; I have spent that time in minutes in the direct care of this critically ill patient, excluding procedure time. ED Disposition Clinical Impression: Epigastric pain Disposition: 01 HOME / SELF CARE / HOMELESS Is pt being admited?: No Does the pt Need Aspirin: No Condition: Stable Instructions: Abdominal Pain, Adult, [id number], Gastroesophageal Reflux Disease, Adult, [id number], Food Choices for Gastroesophageal Reflux Disease, Adult, [id number] Additional Instructions: Take medications as prescribed. Follow-up with your primary care provider if worsening symptoms. Return to the emergency department as needed. Prescriptions: Famotidine [Pepcid] 40 mg PO QHS #30 tab Referrals: PRIMARY CARE, [Primary Care Provider] - 3-5 Days Time of Disposition: 15:25
== END 2022-01-18 15:40 | disposition home or self-care (01) ==
LOC: ED 10:21
DX: R10.13 Epigastric pain (principal); I10 Essential (primary) hypertension
CPT/HCPCS: 36415; 74018; 80053; 83690; 85027; 99283

== ENCOUNTER 2022-03-24 12:17 | Emergency (ER) | payer MEDICARE ==
[2022-03-24 13:52] LABS: Hematocrit 40.4 % (35.5-45.6); Hemoglobin 13.1 gm/dl (11.8-15.2); Mean Corpuscular HGB Conc 33 % (32-34); Mean Corpuscular Volume 78 fl (84-94); Platelet Count 267 K/mm3 (140-440); Red Blood Count 5.18 M/mm3 (3.65-5.03); Red Cell Distribution Width 14.8 % (13.2-15.2)
[2022-03-24 14:26] LABS: Alanine Aminotransferase 20 units/L (7-56); Albumin 4.2 g/dL (3.9-5); BUN/Creatinine Ratio 9; Blood Urea Nitrogen 7 mg/dL (9-20); Calcium 8.9 mg/dL (8.4-10.2); Hemolysis Index 8
--- NOTE | 2022-03-24 14:50 | Emergency Department Report ---
Vomiting/Diarrhea - HPI Chief Complaint: Nausea/Vomiting/Diarrhea Stated Complaint: STOMACH PAIN Time Seen by Provider: 03/24/22 14:41 Duration: 2 Days Severity: moderate Nausea/Vomiting Severity: None Diarrhea Severity: Moderate Pain Severity: Moderate Symptoms: Yes Watery Diarrhea, Yes Able to Tolerate Fluids, No Bloody diarrhea, No Fever, No Recent Unusual Foods, No Recent Untreated Water, No Recent use of Antibiotics, No Family w/ Similar Symptoms, No Contacts w/ Similar Symptoms, No Rash, No Hematuria, No Recent URI Symptoms Other History: 41-year-old -[place] male presents to the emergency room with diarrhea and epigastric pain for 2-3 days. Patient states pain has resolve d today but reports discomfort with bowel movements. Patient admits to diarrhea for 1 day. Patient states he has not experienced diarrhea today because he is afraid to eat. Denies fever, chills, nausea, vomiting, chest pain, or urinary changes. ED Review of Systems ROS: Stated complaint: STOMACH PAIN Other details as noted in HPI Constitutional: denies: chills, fever Respiratory: denies: cough, shortness of breath, wheezing Cardiovascular: denies: chest pain, palpitations Gastrointestinal: abdominal pain, diarrhea. denies: nausea, vomiting, hematoche shelbie Genitourinary: denies: urgency, dysuria Neurological: denies: headache, weakness, paresthesias Psychiatric: denies: anxiety, depression ED Past Medical Hx - Past Medical History Hx Hypertension: Yes (has been taking BP meds since 06/2017) Hx CVA: No Hx Heart Attack/AMI: No Hx Congestive Heart Failure: No Hx Diabetes: No Hx Deep Vein Thrombosis: No Hx Pulmonary Embolism: No Hx GERD: No Hx Liver Disease: No Hx Renal Disease: No Hx Sickle Cell Disease: No Hx Arthritis: Yes (HANDS) Hx Headaches / Migraines: No Hx Seizures: No Hx Kidney Stones: Yes Hx Psychiatric Treatment: No Hx Asthma: No Hx COPD: No Hx Tuberculosis: No Hx Dementia: No Hx HIV: No Additional medical history: Inguinal HERNIA-REPAIRED, Obesity,. BILATERAL CAR PAL TUNNEL - Surgical History Hx Coronary Stent: No Hx Open Heart Surgery: No Hx Pacemaker: No Hx Internal Defibrillator: No Hx Cholecystectomy: No Hx Appendectomy: No Hx Breast Surgery: No Additional Surgical History: KIDNEY STONE SURGERY 2008. HERNIA REPAIR - Social History Smoking Status: Never Smoker - Medications Home Medications: Home Medications Medication Instructions Recorded Confirmed Last Taken Type Aspirin [Aspirin EC] 81 mg PO DAILY 10/06/17 10/06/17 Unknown History Cyclobenzaprine [Flexeril 10 MG 10 mg PO TID PRN 10/06/17 10/06/17 Unknown History TAB] Diphenoxylate HCl/Atropine 1 each PO PRN 10/06/17 10/06/17 Unknown History [Diphenoxylate-Atrop 2.5-0.025] Ziprasidone HCl [Geodon] 80 mg PO BID 10/06/17 10/06/17 Unknown History hydroCHLOROthiazide [HCTZ] 12.5 mg PO QDAY 10/06/17 10/06/17 Unknown History Omeprazole 40 mg PO DAILY #30 capsule. 10/08/17 Unknown Rx Oxycodone HCl/Acetaminophen 1 each PO Q6HR PRN #12 tablet 04/04/19 Unknown Rx [Percocet 7.5/325 mg] Ketorolac [Toradol] 10 mg PO Q6H PRN #20 tablet 12/06/19 Unknown Rx Metoclopramide [Reglan] 10 mg PO TID #20 tab 12/06/19 Unknown Rx Tamsulosin [Flomax] 0.4 mg PO QDAY #5 cap 12/06/19 Unknown Rx Diclofenac Sodium 75 mg PO BID PRN #14 tablet. 06/11/20 Unknown Rx Ibuprofen [Motrin 800 MG tab] 800 mg PO Q8HR PRN #30 tablet 06/18/20 Unknown Rx methOCARBAMOL [Robaxin TAB] 1,500 mg PO Q8H PRN #30 tablet 06/18/20 Unknown Rx traMADoL [Ultram] 50 mg PO Q6HR PRN #12 tablet 06/18/20 Unknown Rx Ciprofloxacin HCl [Ciprofloxacin 500 mg PO Q12HR #14 tab 07/23/20 Unknown Rx TAB] metroNIDAZOLE [Flagyl] 500 mg PO Q12HR #10 tab 07/23/20 Unknown Rx Ketorolac [Toradol] 10 mg PO Q6H PRN #10 tablet 12/07/20 Unknown Rx Naproxen 500 mg PO BID PRN #30 tablet 04/12/21 Unknown Rx Cyclobenzaprine [Flexeril] 10 mg PO TID PRN #21 tab 12/17/21 Unknown Rx Lidocaine [Lidoderm] 1 each TP DAILY PRN #10 patch 12/17/21 Unknown Rx Naproxen [Naprosyn] 500 mg PO BID #14 tab 12/17/21 Unknown Rx Famotidine [Pepcid] 40 mg PO QHS #30 tab 03/24/22 Unknown Rx Ondansetron [Zofran Odt] 4 mg PO Q8HR PRN #12 tab.rapdis 03/24/22 Unknown Rx Vomiting Diarrhea Exam - Exam General: Vital signs noted. No distress. Alert and acting appropriately. HEENT: Yes Moist Mucous Membranes, No Pharyngeal Erythema, No Pharyngeal Exudates, No Rhinorrhea, No Conjuctival Injection, No Frontal Tenderness, No Maxillary Tenderness Neck: No Adenopathy, No Rigidity Lungs: Yes Clear Lung Sounds, Yes Good Air Exchange, No Wheezes, No Stridor, No Cough, No Nasal Flaring, No Retractions, No Use of Accessory Muscles Heart exam: Regular: Yes, Murmur: No, Tachycardia: No Abdomen: Tenderness: No, Peritoneal Signs: No, Distention: No, Hyperactive Bowel sounds: No Skin exam: Rash: No, Edema: No, Normal turgor: Yes Neurologic: Alert and oriented, no deficits. Musculoskeletal: Unremarkable. ED Course Vital Signs 03/24/22 12:28 Temperature 98.4 F Pulse Rate 80 Respiratory 18 Rate Blood Pressure 122/89 O2 Sat by Pulse 97 Oximetry Vital Signs 03/24/22 03/24/22 12:28 17:25 Temperature 98.4 F 98.4 F Pulse Rate 80 86 Respiratory 18 16 Rate Blood Pressure 122/89 Blood Pressure 133/81 [Left] O2 Sat by Pulse 97 100 Oximetry ED Medical Decision Making - Lab Data Result diagrams: 03/24/22 13:21 03/24/22 13:21 Lab Results 03/24/22 03/24/22 03/24/22 Range/Units 13:21 13:21 Unknown WBC 4.7 (4.5-11.0) K/mm3 RBC 5.18 H (3.65-5.03) M/mm3 Hgb 13.1 (11.8-15.2) gm/dl Hct 40.4 (35.5-45.6) % MCV 78 L (84-94) fl MCH 25 L (28-32) pg MCHC 33 (32-34) % RDW 14.8 (13.2-15.2) % Plt Count 267 (140-440) K/mm3 Sodium 139 (137-145) mmol/L Potassium 4.1 (3.6-5.0) mmol/L Chloride 105.2 (98-107) mmol/L Carbon Dioxide 23 (22-30) mmol/L Anion Gap 15 mmol/L BUN 7 L (9-20) mg/dL Creatinine 0.8 (0.8-1.3) mg/dL Estimated GFR > 60 ml/min BUN/Creatinine Ratio 9 % Glucose 85 (75-100) mg/dL Calcium 8.9 (8.4-10.2) mg/dL Total Bilirubin 1.10 (0.1-1.2) mg/dL AST 14 (5-40) units/L ALT 20 (7-56) units/L Alkaline Phosphatase 65 (35-129) units/L Total Protein 7.0 (6.3-8.2) g/dL Albumin 4.2 (3.9-5) g/dL Albumin/Globulin Ratio 1.5 % Lipase 18 (13-60) units/L Urine Color Yellow (Yellow) Urine Turbidity Clear (Clear) Urine pH 5.0 (5.0-7.0) Ur Specific [place] 1.018 (1.003-1.030) Urine Protein <15 mg/dl (Negative) mg/dL Urine Glucose (UA) Neg (Negative) mg/dL Urine Ketones Neg (Negative) mg/dL Urine Blood Neg (Negative) Urine Nitrite Neg (Negative) Urine Bilirubin Neg (Negative) Urine Urobilinogen < 2.0 (<2.0) mg/dL Ur Leukocyte Esterase Neg (Negative) Urine WBC (Auto) 1.0 (0.0-6.0) /HPF Urine RBC (Auto) < 1.0 (0.0-6.0) /HPF U Epithel Cells (Auto) < 1.0 (0-13.0) /HPF Urine Bacteria (Auto) 1+ (Negative) /HPF Urine Mucus Few /HPF - Medical Decision Making Patient presents with epigastric pain for 2 to 3 days. Patient is stable and was examined by me. Vitals stable. Obtained CMP, CBC, & UA. All unremarkable. Abdomen nontender on exam. Symptoms are susceptible gastritis. Given education on [id number] medication for symptomatic relief. Referral to PCP. Given strict return instructions. No further questions noted by the patient. Discharged home in stable condition. Follow up with PCP in 2-3 days. Critical care attestation.: If time is entered above; I have spent that time in minutes in the direct care of this critically ill patient, excluding procedure time. ED Disposition Clinical Impression: Epigastric pain, Nausea alone, Gastroenteritis Disposition: 01 HOME / SELF CARE / HOMELESS Is pt being admited?: No Condition: Stable Instructions: Nausea, Adult, Abdominal Pain, Adult, [id number] Prescriptions: Famotidine [Pepcid] 40 mg PO QHS #30 tab Ondansetron [Zofran Odt] 4 mg PO Q8HR PRN #12 tab.rapdis PRN Reason: Nausea And Vomiting Referrals: HUBERT YANEZ MD [Staff Physician] - 3-5 Days Time of Disposition: 17:08
[2022-03-24 16:15] LABS: Bilirubin,Urine NEG (Negative); Blood,Urine NEG (Negative); Color,Urine Yellow (Yellow); Protein,Urine <15 mg/dL mg/dL (Negative); Urobilinogen,Urine < 2.0 mg/dL (<2.0)
[2022-03-24 16:16] LABS: Bacteria,Urine 1+ /HPF (Negative); Mucus,Urine FEW /HPF; RBC,Urine < 1.0 /HPF (0.0-6.0)
[2022-03-24 17:34] VITALS: BP 133/81
== END 2022-03-24 17:34 | disposition home or self-care (01) ==
LOC: ED 12:17
DX: K52.9 Noninfective gastroenteritis and colitis, unspecified (principal); R10.13 Epigastric pain; R11.0 Nausea; M19.90 Unspecified osteoarthritis, unspecified site; N20.0 Calculus of kidney; I10 Essential (primary) hypertension
CPT/HCPCS: 36415; 80053; 81001; 83690; 85027; 99283